=== PATIENT | female | born 1965 | race Caucasian/White ===

== ENCOUNTER 2020-07-16 09:59 | Day surgery (SDC) | payer OTHER, SELFPAY ==
--- NOTE | 2020-07-13 13:34 | HO.ANESPROP2 ---
Documented by User: Maia Gaffney 07/13/20 13:37 HPI - Anesthesia Eval Consult details Narrative: 54yo F for screening colonoscopy [facility] Past Medical History Medical History Anxiety Depression Hx of melanoma of skin Hyperlipemia Hypertension Kidney stones Surgical History Surgical History Hx of colonoscopy Hx of lithotripsy Social History Social History Advance Directives: No Advance Directives Information Provided: No Meds Allergies Allergy/AdvReac Type Severity Reaction Status Date / Time hydrocodone [Vicodin] Allergy Unknown Itchiness Verified 05/04/20 00:00 all over acetaminophen [From PERCOCET] AdvReac Intermediate BAD DREAMS Unverified 07/02/20 16:34 oxycodone [From PERCOCET] AdvReac Intermediate BAD DREAMS Unverified 07/02/20 16:34 Home Medications Medication Instructions Recorded Confirmed Type alprazolam [Xanax] 0.25 mg PO BEDTIME PRN 07/13/20 07/13/20 History cholecalciferol (vitamin D3) 25 mcg PO DAILY 07/13/20 07/13/20 History [Vitamin D3] hydrochlorothiazide 12.5 mg PO DAILY 07/13/20 07/13/20 History lisinopril 10 mg PO DAILY 07/13/20 07/13/20 History loratadine [Claritin] 10 mg PO DAILY 07/13/20 07/13/20 History Exam Exam Date and Time: July 13, 2020 1334 Pertinent Lab Results Pertinent Lab Results: PROFILE and CBC WNL 07/10/20 Assessment and Plan Assessment Anesthesia Assessment: Chart Reviewed (07/13/20 ) Documented by User: Rene Yates 07/16/20 10:34 [facility] Past Medical History Medical History Anxiety Depression Hx of melanoma of skin Hyperlipemia Hypertension Kidney stones Surgical History Surgical History Hx of colonoscopy Hx of lithotripsy Social History Social History Advance Directives: No Advance Directives Information Provided: No Meds Allergies Allergy/AdvReac Type Severity Reaction Status Date / Time hydrocodone [Vicodin] Allergy Unknown Itchiness Verified 05/04/20 00:00 all over acetaminophen [From PERCOCET] AdvReac Intermediate BAD DREAMS Unverified 07/02/20 16:34 oxycodone [From PERCOCET] AdvReac Intermediate BAD DREAMS Unverified 07/02/20 16:34 Home Medications Medication Instructions Recorded Confirmed Type alprazolam [Xanax] 0.25 mg PO BEDTIME PRN 07/13/20 07/13/20 History cholecalciferol (vitamin D3) 25 mcg PO DAILY 07/13/20 07/13/20 History [Vitamin D3] hydrochlorothiazide 12.5 mg PO DAILY 07/13/20 07/13/20 History lisinopril 10 mg PO DAILY 07/13/20 07/13/20 History loratadine [Claritin] 10 mg PO DAILY 07/13/20 07/13/20 History Exam Airway Mallampati Class: III TM Dist: >3cm Neck ROM: Full Heart: RRR Assessment and Plan Final Anesthetic Review NPO: Yes ASA Class: II Final Preanesthetic Review: Meds & Allergies Reviewed and Anes Risks/Benef Reviewed Anesthetic Plan Anesthetic Plan: MAC: Disposition: Standard PACU
[2020-07-16 11:03] VITALS: BMI 32.1
[2020-07-16 11:05] VITALS: BP 136/86; PULSE 83; RESP 16; TEMP 37.1; O2SAT 97
[2020-07-16] MEDS: Lactated Ringers 1,000 ML 100 ML IVCONT (11:38)
--- NOTE | 2020-07-16 12:14 | MHC.SHP ---
Surgical H&P Section A The patient is an INPATIENT: No Changes since office visit: No Cold of Flu in the past 2 weeks, No New Medical Problems, No Changes in Medication and No Patient answered all questions The History & Physical has been completed within 30 days and I have reviewed it.: No Section B Chief Complaint: Family hx of colon cancer Details of Present Illness: Family history of colon cancer; Past hx colo no polyps Hypertension No recent changes Relevant Family History (Specify if Yes): Yes Relevant Social History: None Present Medications: see Short Stay Collaborative assessment Medical History: Significant History (Hypertension) History of Previous Operations: Relevant previous surgery/procedure and date(s) (Last colo: Normal exam-02/17/15-(N)) Allergies: Allergies Allergy/AdvReac Type Severity Reaction Status Date / Time hydrocodone [Vicodin] Allergy Unknown Itchiness Verified 05/04/20 00:00 all over oxycodone [From PERCOCET] AdvReac Intermediate BAD DREAMS Verified 07/16/20 11:34 Review of Systems Sugical H&P ROS: Negative: Constitution, Cardiovascular, Respiratory, Neurological, Psychiatric, Hem-Onc, Allergic/Immunologic, Gastrointestinal, Genitourinary, Musculoskeletal, Integumentary, Endocrine and Eyes/Ears/Nose/Throat Exam Surgical H&P Exam: Normal: Heart, Normal: Lungs, Normal: Extremities, Normal: Abdomen and Normal: Skin and Not Evaluated: HEENT and Not Evaluated: Neurological Plan Diagnosis/Plan: Unchanged Patient has been examined and remains a candidate for the planned procedure
[2020-07-16 12:54] VITALS: BP 105/63; PULSE 71; RESP 18; TEMP 36.8; O2SAT 95
--- NOTE | 2020-07-16 13:08 | PM.OP ---
Brief Operative Note Date of procedure: 07/16/20 Pre-op diagnosis: Colon cancer screening--Positive Family history Post-op diagnosis: other (Normal exam--good prep) Procedure: Colonoscopy, excellent prep--no lesions. Anesthesia: MAC Surgeon: Corine Faust Pathology: none sent Condition: stable Disposition: PACU
[2020-07-16 13:09] VITALS: BP 133/66; PULSE 70; RESP 16; O2SAT 97
[2020-07-16 13:24] VITALS: BP 141/76; PULSE 66; RESP 16; O2SAT 97
== END 2020-07-16 13:56 | disposition home or self-care (01) ==
LOC: HO.SSS 10:00
PROVIDERS: PCP Internal Medicine; Visit Provider Internal Medicine Gastroenterology
PROC: 0DJD8ZZ Inspection of Lower Intestinal Tract, Via Natural or Artificial Opening Endoscopic (ICD-10-PCS; CPT 45378; principal; 2020-07-16 11:00)
DX: Z80.0 Family history of malignant neoplasm of digestive organs (principal); I10 Essential (primary) hypertension; E78.5 Hyperlipidemia, unspecified; Z12.11 Encounter for screening for malignant neoplasm of colon; F32.9 Major depressive disorder, single episode, unspecified; Z85.820 Personal history of malignant melanoma of skin; F17.210 Nicotine dependence, cigarettes, uncomplicated; Z79.899 Other long term (current) drug therapy; Z87.442 Personal history of urinary calculi; Z88.8 Allergy status to other drugs, medicaments and biological substances
CPT/HCPCS: 45378

== ENCOUNTER → 2020-07-24 16:44 | Outpatient (BNVA) | payer OTHER, SELFPAY | PROVIDERS: PCP Internal Medicine; Referring Provider Internal Medicine; Visit Provider Nurse Practitioner Family | DX: Z76.89 Persons encountering health services in other specified circumstances (principal) ==

== ENCOUNTER 2020-10-01 07:57 | Outpatient (REF) | payer OTHER, SELFPAY ==
--- NOTE | 2020-10-01 08:00 | US_ITS ---
EXAMINATION: US ABDOMEN COMPLETE CLINICAL INFORMATION: Other unspecified abnormal findings of blood chemistry. COMPARISON: Renal ultrasound dated 10/22/2013. KUB dated 10/02/2013 [address] 08/27/2013. CT abdomen and pelvis with and without contrast dated 09/16/2013. TECHNIQUE: Real-time imaging of the abdominal viscera. FINDINGS: PANCREAS: Normal. ABDOMINAL AORTA: The proximal, mid, and distal segments are normal in caliber. INFERIOR VENA CAVA: Visualized portions are normal. LIVER: The liver is normal in size. The liver contour is normal. Liver echotexture is slightly increased, probably representing fatty infiltration. No focal hepatic lesion. There is no intrahepatic biliary duct dilatation seen. GALLBLADDER: Normal. The gallbladder is physiologically distended without evidence of stones, sludge, polyps, wall thickening or pericholecystic fluid. COMMON BILE DUCT: Normal in caliber measuring 0.27 cm in diameter. RIGHT KIDNEY: Normal. No hydronephrosis. No renal calculi or focal parenchymal lesions. The kidney measures 12.1 cm in maximum dimension. LEFT KIDNEY: There is a 0.7 x 0.7 x 1 cm stone in the lower pole. No hydronephrosis or focal parenchymal lesions. The kidney measures 11 cm in maximum dimension. SPLEEN: Normal. The spleen measures 10 cm in maximum dimension. FREE FLUID: None. US/US abdomen complete IMPRESSION: Echogenic liver probably representing fatty infiltration. Left renal stone.
== END 2020-10-01 07:58 | disposition home or self-care (01) ==
LOC: HO.US 07:57
PROVIDERS: PCP Internal Medicine; Visit Provider Internal Medicine
DX: R79.89 Other specified abnormal findings of blood chemistry (principal)
CPT/HCPCS: 76700

== ENCOUNTER 2020-10-30 07:13 | Outpatient (REF) | payer OTHER, SELFPAY ==
[2020-10-30 07:44] LABS: MANUAL DIFF FLAG NO
[2020-10-30 07:46] LABS: Basophils Percent Auto 0.4 % (0-2); Eosinophils Absolute Auto 0.1 X10*3/uL (0.0-0.4); Eosinophils Percent Auto 1.2 % (0-4); Hematocrit 39.4 % (37-47); Hemoglobin 13.2 g/dl (12.0-16.0); Imm Gran Abs Auto 0.02 X10*3/uL (0.00-0.03); Imm Gran Pct Auto 0.3 % (0.0-0.4); Lymphocytes Absolute Auto 2.8 X10*3/uL (1.2-4.9); Lymphocytes Percent Auto 38.2 % (20-40); Mean Corpuscular HGB Conc 33.5 g/dl (31.0-35.0); Mean Corpuscular Hemoglobin 30.8 pg (27.0-33.0); Mean Corpuscular Volume 91.8 fL (80-98); Mean Platelet Volume 10.5 fL (9.4-12.3); Monocytes Absolute Auto 0.6 X10*3/uL (0.1-1.2); Monocytes Percent Auto 7.6 % (2-11); Neutrophils Absolute Auto 3.8 X10*3/uL (2.0-8.3); Neutrophils Percent Auto 52.3 % (45-73); Platelet Count 228 X10*3/uL (160-400); Red Blood Count 4.29 X10*6/uL (4.20-5.50); Red Cell Distribution Width 12.4 % (11.0-16.0); White Blood Count 7.3 X10*3/uL (4.8-10.8)
[2020-10-30 07:48] LABS: Glucose Urine UA NEG (NEG); Leukocyte Esterase Urine 1+ (NEG); Nitrite Urine NEG (NEG); Urine Blood TRACE (NEG); Urine Ketones NEG (NEG); Urine Protein NEG (NEG-TRACE)
[2020-10-30 07:49] LABS: Appearance Urine HAZY; Color Urine YELLOW
[2020-10-30 08:07] LABS: Alanine Aminotransferase 22 U/L (0-31); Albumin Level 4.3 g/dL (3.5-5.0); Alkaline Phosphatase 62 U/L (39-117); Anion Gap 17 (12-20); Aspartate Amino Transferase 18 U/L (5-31); Bilirubin Total 0.6 mg/dL (0.0-1.0); Blood Urea Nitrogen 18 mg/dL (9-16); Calcium 8.8 mg/dL (8.4-10.2); Carbon Dioxide 23 mmol/L (22-29); Chloride 105 mmol/L (96-108); Cholesterol 178 mg/dL; Estimated Glomerular Filt Rate > 60; Glucose Random 105 mg/dL (60-115); HDL Cholesterol 39 mg/dL; LDL Cholesterol Calculated 114 mg/dl; Sodium 141 mmol/L (135-145); Total Protein 6.9 g/dL (6.5-8.0); Triglycerides 128 mg/dL
[2020-10-30 08:12] LABS: Bacteria Urine TRACE /LPF; RBC Urine 0-2 /HPF (0); Renal Epithelial Cells Urine TRACE /LPF; Squamous Epithelial Cell Urine 3+ /LPF
[2020-10-30 08:23] LABS: HBsAGNum1 0.23 S/CO (0.00-0.99); Hepatitis B Surface Antigen Negative (Negative); ~Hepatitis B Surface Antibody REACTIVE (Nonreactive)
[2020-10-30 08:27] LABS: Free T4 (Free Thyroxine) 0.91 ng/dL (0.71-1.85); Thyroid Stimulating Hormone 2.84 uIU/mL (0.32-4.0); Vitamin D 25-OH Total 44.5 ng/mL (>30)
[2020-10-30 08:39] LABS: Folate 13.1 ng/mL (> or = 4.0); Vitamin B12 345 pg/mL (200-900)
[2020-10-30 09:00] LABS: HBc Num1 0.07 S/CO (0.00-0.79); Hepatitis B Core Antibody Nonreactive (Nonreactive); ~HepC Num1 0.07 S/CO (0.00-0.79); ~Hepatitis C Antibody Nonreactive (Nonreactive)
== END 2020-10-30 07:14 | disposition home or self-care (01) ==
LOC: HO.LAB 07:13
PROVIDERS: Visit Provider Internal Medicine
DX: F41.8 Other specified anxiety disorders (principal); E78.00 Pure hypercholesterolemia, unspecified; I10 Essential (primary) hypertension; R79.89 Other specified abnormal findings of blood chemistry
CPT/HCPCS: 36415; 80053; 80061; 81001; 82306; 82607; 82746; 84439; 84443; 85025; 86704; 86706; 86803; 87340

== ENCOUNTER → 2020-11-17 15:19 | Outpatient (BNVA) | payer OTHER, SELFPAY | PROVIDERS: Visit Provider Urology ==

== ENCOUNTER 2020-12-02 06:55 | Day surgery (SDC) | payer OTHER, SELFPAY ==
[2020-11-26 10:29] VITALS: BMI 32.1
--- NOTE | 2020-12-01 12:12 | HO.ANESPROP2 ---
Documented by User: Maia Gaffney 12/01/20 12:14 HPI - Anesthesia Eval Consult details Narrative: 55yo F for L ESWL Last ESWL 2012 [facility] Active Problems Active Problems: All Active Problems (Updated 11/02/20 @ 17:45 by Rochelle Bazzi MD) Hypertension (Acute) Hx of melanoma of skin (Acute) High cholesterol (Acute) LFT elevation (Acute) Fatty liver (Acute) Impaired glucose tolerance (Acute) Family history of breast cancer in first degree relative (Acute) History of renal calculi (Acute) Anxiety and depression (Acute) Past Medical History Medical History Anxiety and depression History of renal calculi Skin melanoma Vitreous degeneration of left eye Family History Family History Mother Breast cancer Sister Breast cancer Father No problems noted. Brother Colon cancer Maternal Grandmother Breast cancer Surgical History Surgical History History of shoulder surgery Hx of colonoscopy Hx of lithotripsy Social History Social History Alcohol intake: current Alcohol intake frequency: a few times a week Smoking Status: Former smoker Packs Per Day: 1 Cigarettes Per Day: 20.0 Years Smoked: 20 Smoking Quit Date: unknown Second Hand Smoke Exposure: No Advance Directives Information Provided: No Meds Allergies Allergy/AdvReac Type Severity Reaction Status Date / Time hydrocodone [Vicodin] Allergy Intermediate Itchiness Verified 12/02/20 07:39 all over oxycodone [From PERCOCET] AdvReac Intermediate BAD DREAMS Verified 12/02/20 07:39 Home Medications Medication Instructions Recorded Confirmed Last Taken Type cholecalciferol (vitamin D3) 25 mcg PO DAILY 07/13/20 11/26/20 Unknown History [Vitamin D3] lisinopril 10 mg PO DAILY 07/13/20 11/26/20 Unknown History cetirizine 10 mg PO DAILY 07/16/20 11/26/20 07/16/20 08:00 History 1 alprazolam 1 tab PO DAILY PRN 11/26/20 11/26/20 Unknown History Exam Exam Date and Time: December 01, 2020 1212 Height,Weight and Vital Signs: Height 5 ft 1 in Weight 77.111 kg Pertinent Lab Results Pertinent Lab Results: Laboratory Tests 10/30/20 10/30/20 07:20 07:20 WBC 7.3 Hgb 13.2 Hct 39.4 Plt Count 228 Sodium 141 Potassium 4.0 Chloride 105 Carbon Dioxide 23 BUN 18 H Creatinine 0.78 Assessment and Plan Assessment Anesthesia Assessment: Chart Reviewed Documented by User: Olivia Cortez 12/02/20 08:55 [facility] Past Medical History Medical History Anxiety and depression History of renal calculi Skin melanoma Vitreous degeneration of left eye Family History Family History Mother Breast cancer Sister Breast cancer Father No problems noted. Brother Colon cancer Maternal Grandmother Breast cancer Surgical History Surgical History History of shoulder surgery Hx of colonoscopy Hx of lithotripsy Social History Social History Alcohol intake: current Alcohol intake frequency: a few times a week Smoking Status: Former smoker Packs Per Day: 1 Cigarettes Per Day: 20.0 Years Smoked: 20 Smoking Quit Date: unknown Second Hand Smoke Exposure: No Advance Directives Information Provided: No Meds Allergies Allergy/AdvReac Type Severity Reaction Status Date / Time hydrocodone [Vicodin] Allergy Intermediate Itchiness Verified 12/02/20 07:39 all over oxycodone [From PERCOCET] AdvReac Intermediate BAD DREAMS Verified 12/02/20 07:39 Home Medications Medication Instructions Recorded Confirmed Last Taken Type cholecalciferol (vitamin D3) 25 mcg PO DAILY 07/13/20 11/26/20 Unknown History [Vitamin D3] lisinopril 10 mg PO DAILY 07/13/20 11/26/20 Unknown History cetirizine 10 mg PO DAILY 07/16/20 11/26/20 07/16/20 08:00 History 1 alprazolam 1 tab PO DAILY PRN 11/26/20 11/26/20 Unknown History
[2020-12-02] VITALS (7 sets, daily range): BP systolic 101–119; BP diastolic 53–63; PULSE 54–65; RESP 16–20; TEMP 36.4–37.3; O2SAT 93–99
--- NOTE | ~2020-12-02 | XR_ITS ---
EXAMINATION: XR ABDOMEN KUB CLINICAL INDICATION: Stones. COMPARISON: CT of 09/16/2013. KUB of 08/27/2013. TECHNIQUE: AP view of the abdomen. FINDINGS: The bowel gas pattern is normal with no evidence of ileus or obstruction. The bones are unremarkable. There is an 8 x 5 mm calculus seen overlying the lower pole of the left kidney. No definite calculi are seen overlying the region of the right kidney. No definite calculi along the expected paths of the ureters. Multiple phleboliths are seen about the pelvis. Right psoas margin is intact. Left psoas margin is difficult to see. There is mild scoliosis of the lumbar spine convex right which may be positional in nature. There is partial lumbarization of S1. XR/XR KUB IMPRESSION: Left renal lower pole calculus. This is larger than on prior study of 08/27/2013 where it measured approximately 3 mm in size.
[2020-12-02] MEDS: Lactated Ringers 1,000 ML 100 ML IVCONT (08:07)
--- NOTE | 2020-12-02 09:25 | MHC.SHP ---
Pre-Procedural Eval Section A The patient is an INPATIENT: No Changes since office visit: No Cold of Flu in the past 2 weeks, No New Medical Problems, No Changes in Medication and No Patient answered all questions The History & Physical has been completed within 30 days and I have reviewed it.: Yes Section B Chief Complaint: hx of urinary calculi Allergies: Allergies Allergy/AdvReac Type Severity Reaction Status Date / Time hydrocodone [Vicodin] Allergy Intermediate Itchiness Verified 12/02/20 07:39 all over oxycodone [From PERCOCET] AdvReac Intermediate BAD DREAMS Verified 12/02/20 07:39 Plan Diagnosis/Plan: Unchanged I have reviewed the history and physical and performed a pertinent physical examination on my patient. No changes have occurred unless specified. left ESWL
--- NOTE | 2020-12-02 09:26 | PM.OP ---
Brief Operative Note Date of Service: 12/02/20 Pre-op diagnosis: left 9mm kidney stone Post-op diagnosis: same Procedure: left ESWL Surgeon: Edson Sweeney MD Anesthesia: MAC Estimated blood loss (mL): 0 Pathology: none sent Condition: stable Disposition: same day
--- NOTE | 2020-12-02 09:27 | W.PM.OPN ---
Operative Note Operative Note Date of Service: 12/02/20 Narrative: PreOperative Diagnosis: left Renal stones - 9mm lower pole Post Operative Diagnosis: left Renal stones Procedure: left ESWL Surgeon: Dr Edson Sweeney Anesthesia: mac/sedation Indications for procedure: They understand ESWL may be a staged procedure and subsequent intervention may be required based on imaging after ESWL. They also understand there is a risk of bleeding, infection, damage to adjacent organs. Procedure: After informed consent was verified the patient was brought to the operating room and placed in a supine position. Anesthesia was performed per protocol. Safety pause time-out was performed. Imaging was in the room and laterality confirmed. ESWL was performed. The 1st 500 shocks were performed at 60 hertz. These were performed with increasing power. Once maximum power was reached the rate was increased to 180 hertz. A total of 2500 shocks were given. Fluoroscopy showed stone disintegration. They tolerated procedure well and was transferred to the recovery area upon completion.
[2020-12-02] MEDS: Acetaminophen 325 MG TABLET 650 MG PO (11:34)
== END 2020-12-02 11:55 | disposition home or self-care (01) ==
PROVIDERS: PCP Internal Medicine; Visit Provider Urology
PROC: (CPT 50590; principal; 2020-12-02 09:10)
DX: N20.0 Calculus of kidney (principal); I10 Essential (primary) hypertension; Z79.899 Other long term (current) drug therapy; Z87.442 Personal history of urinary calculi; Z88.5 Allergy status to narcotic agent
CPT/HCPCS: 50590; 74018; J1885; J2405; J3010

== ENCOUNTER 2021-05-17 10:17 | Outpatient (REF) | payer OTHER, SELFPAY ==
--- NOTE | ~2021-05-17 | XR_ITS ---
EXAMINATION: XR CHEST CLINICAL INFORMATION: Previous chest x-ray most recent October 2019 COMPARISON: Previous chest x-ray October 2019 TECHNIQUE: 2 views of the chest were obtained. FINDINGS: No significant abnormality is noted involving the heart, lungs, mediastinum, bony thorax or soft tissues. XR/XR chest 2V IMPRESSION: Unremarkable examination.
== END 2021-05-17 10:18 | disposition home or self-care (01) ==
LOC: HO.HMGCX 10:17
PROVIDERS: PCP Internal Medicine; Visit Provider Nurse Practitioner Family
DX: R05 Cough (principal)
CPT/HCPCS: 71046

== ENCOUNTER 2021-05-17 10:18 | Outpatient (REF) | payer OTHER, SELFPAY | END 2021-05-17 10:19 | disposition home or self-care (01) | LOC: HO.LAB 10:18 | PROVIDERS: Visit Provider Nurse Practitioner Family | DX: Z20.822 Contact with and (suspected) exposure to COVID-19 (principal); R05 Cough | CPT/HCPCS: U0003; U0005 ==

== ENCOUNTER 2022-03-16 07:22 | Outpatient (REF) | payer OTHER, SELFPAY ==
[2022-03-16 08:14] LABS: MANUAL DIFF FLAG NO
[2022-03-16 09:35] LABS: Basophils Percent Auto 0.3 % (0-2); Eosinophils Absolute Auto 0.1 X10*3/uL (0.0-0.4); Eosinophils Percent Auto 1.6 % (0-4); Hematocrit 37.9 % (37.0-47.0); Hemoglobin 12.8 g/dl (12.0-16.0); Imm Gran Abs Auto 0.03 X10*3/uL (0.00-0.03); Imm Gran Pct Auto 0.5 % (0.0-0.4); Lymphocytes Percent Auto 35.2 % (20-40); Mean Corpuscular HGB Conc 33.8 g/dl (31.0-35.0); Mean Corpuscular Hemoglobin 30.7 pg (27.0-33.0); Mean Corpuscular Volume 90.9 fL (80.0-98.0); Mean Platelet Volume 10.4 fL (9.4-12.3); Monocytes Absolute Auto 0.5 X10*3/uL (0.1-1.2); Monocytes Percent Auto 8.1 % (2-11); Neutrophils Absolute Auto 3.1 x10*3/uL (2.0-8.3); Neutrophils Percent Auto 54.3 % (45-73); Platelet Count 217 X10*3/uL (160-400); Red Blood Count 4.17 X10*6/uL (4.20-5.50); Red Cell Distribution Width 12.7 % (11.0-16.0); White Blood Count 5.8 X10*3/uL (4.8-10.8)
[2022-03-16 10:21] LABS: Estimated Average Glucose 111 mg/dL; Hemoglobin A1c % 5.5 %
[2022-03-16 10:29] LABS: Alanine Aminotransferase 28 U/L (0-31); Albumin Level 4.2 g/dL (3.5-5.0); Alkaline Phosphatase 57 U/L (39-117); Anion Gap 13 (12-20); Aspartate Amino Transferase 27 U/L (5-31); Bilirubin Total 0.7 mg/dL (0.0-1.0); Blood Urea Nitrogen 17 mg/dL (9-16); Calcium 9.3 mg/dL (8.4-10.2); Carbon Dioxide 26 mmol/L (22-29); Chloride 105 mmol/L (96-108); Cholesterol 213 mg/dL; Estimated Glomerular Filt Rate > 60; Glucose Random 116 mg/dL (60-115); HDL Cholesterol 40 mg/dL; LDL Cholesterol Calculated 134 mg/dl; Potassium 3.7 mmol/L (3.3-5.1); Sodium 140 mmol/L (135-145); Total Protein 6.9 g/dL (6.5-8.0); Triglycerides 197 mg/dL
[2022-03-16 10:34] LABS: Free T4 (Free Thyroxine) 0.95 ng/dL (0.71-1.85); Vitamin D 25-OH Total 27.7 ng/mL (>30)
[2022-03-16 10:46] LABS: Folate 13.6 ng/mL (> or = 4.0); Vitamin B12 236 pg/mL (200-900)
== END 2022-03-16 07:23 | disposition home or self-care (01) ==
LOC: HO.LAB 07:22
PROVIDERS: PCP Internal Medicine; Visit Provider Internal Medicine
DX: R73.02 Impaired glucose tolerance (oral) (principal); I10 Essential (primary) hypertension; E78.00 Pure hypercholesterolemia, unspecified
CPT/HCPCS: 36415; 80053; 80061; 82306; 82607; 82746; 83036; 84439; 84443; 85025

== ENCOUNTER 2022-03-17 12:42 | Outpatient (REF) | payer OTHER, SELFPAY ==
--- NOTE | ~2022-03-17 | XR_ITS ---
EXAMINATION: XR ANKLE, LEFT CLINICAL INFORMATION: Sprain of the left ankle COMPARISON: None TECHNIQUE: AP, lateral, and mortise views of the left ankle. FINDINGS: There is osseous fragmentation at the tip of the lateral malleolus. There is overlying soft tissue swelling. Ankle mortise is congruent. No significant hernia. XR/XR ankle LT 2V IMPRESSION: Fracture at the tip of the lateral malleolus with overlying soft tissue swelling.
== END 2022-03-17 12:43 | disposition home or self-care (01) ==
LOC: HO.XRAY 12:42
PROVIDERS: PCP Internal Medicine; Visit Provider Internal Medicine
DX: S93.402A Sprain of unspecified ligament of left ankle, initial encounter (principal)
CPT/HCPCS: 73600

== ENCOUNTER 2023-03-16 07:32 | Outpatient (REF) | payer OTHER, SELFPAY ==
[2023-03-16 10:54] LABS: MANUAL DIFF FLAG NO
[2023-03-16 11:07] LABS: Basophils Absolute Auto 0.1 X10*3/uL (0.0-0.2); Basophils Percent Auto 0.8 % (0-2); Eosinophils Absolute Auto 0.1 X10*3/uL (0.0-0.4); Hematocrit 38.2 % (37.0-47.0); Hemoglobin 12.8 g/dl (12.0-16.0); Imm Gran Abs Auto 0.01 X10*3/uL (0.00-0.03); Imm Gran Pct Auto 0.2 % (0.0-0.4); Lymphocytes Absolute Auto 1.8 X10*3/uL (1.2-4.9); Lymphocytes Percent Auto 29.4 % (20-40); Mean Corpuscular HGB Conc 33.5 g/dl (31.0-35.0); Mean Corpuscular Hemoglobin 30.9 pg (27.0-33.0); Mean Corpuscular Volume 92.3 fL (80.0-98.0); Mean Platelet Volume 11.2 fL (9.4-12.3); Monocytes Absolute Auto 0.5 X10*3/uL (0.1-1.2); Monocytes Percent Auto 7.8 % (2-11); Neutrophils Absolute Auto 3.6 x10*3/uL (2.0-8.3); Neutrophils Percent Auto 59.8 % (45-73); Platelet Count 212 X10*3/uL (160-400); Red Blood Count 4.14 X10*6/uL (4.20-5.50); Red Cell Distribution Width 12.4 % (11.0-16.0)
[2023-03-16 11:18] LABS: Alanine Aminotransferase 23 U/L (0-31); Albumin Level 4.2 g/dL (3.5-5.0); Alkaline Phosphatase 65 U/L (39-117); Anion Gap 15 (12-20); Aspartate Amino Transferase 23 U/L (5-31); Bilirubin Total 0.9 mg/dL (0.0-1.0); Blood Urea Nitrogen 17 mg/dL (9-16); Calcium 9.3 mg/dL (8.4-10.2); Carbon Dioxide 25 mmol/L (22-29); Chloride 105 mmol/L (96-108); Cholesterol 192 mg/dL; Estimated Glomerular Filt Rate > 60; Glucose Random 118 mg/dL (60-115); HDL Cholesterol 39 mg/dL; LDL Cholesterol Calculated 121 mg/dl; Sodium 141 mmol/L (135-145); Total Protein 6.8 g/dL (6.5-8.0); Triglycerides 164 mg/dL
[2023-03-16 11:31] LABS: Estimated Average Glucose 111 mg/dL; Hemoglobin A1c % 5.5 %
[2023-03-16 11:46] LABS: Folate 15.4 ng/mL (> or = 4.0); Free T4 (Free Thyroxine) 0.85 ng/dL (0.71-1.85); Thyroid Stimulating Hormone 2.53 uIU/mL (0.32-4.0); Vitamin B12 378 pg/mL (200-900); Vitamin D 25-OH Total 33.5 ng/mL (>30)
== END 2023-03-16 07:33 | disposition home or self-care (01) ==
LOC: HO.10HDL 07:32
PROVIDERS: Visit Provider Internal Medicine
DX: I10 Essential (primary) hypertension (principal); R73.02 Impaired glucose tolerance (oral); E78.00 Pure hypercholesterolemia, unspecified; E55.9 Vitamin D deficiency, unspecified; M81.0 Age-related osteoporosis without current pathological fracture
CPT/HCPCS: 36415; 80053; 80061; 82306; 82607; 82746; 83036; 84439; 84443; 85025

== ENCOUNTER → 2023-05-01 09:01 | Outpatient (REF) | payer OTHER, SELFPAY | LOC: HO.SL 09:01 | PROVIDERS: PCP Internal Medicine; Visit Provider Internal Medicine | DX: G47.10 Hypersomnia, unspecified (principal) | CPT/HCPCS: 95806 ==

== ENCOUNTER → 2023-05-01 09:21 | Outpatient (BNV) | payer OTHER, SELFPAY | PROVIDERS: PCP Internal Medicine; Visit Provider Internal Medicine | DX: G47.10 Hypersomnia, unspecified (principal) | CPT/HCPCS: 95806 ==

== ENCOUNTER 2023-10-20 11:16 | Outpatient (REF) | payer OTHER, SELFPAY | END 2023-10-20 11:17 | disposition home or self-care (01) | LOC: HO.LAB 11:16 | PROVIDERS: PCP Internal Medicine; Visit Provider Internal Medicine | DX: R73.02 Impaired glucose tolerance (oral) (principal) | CPT/HCPCS: 36415; 80053; 83036 ==

== ENCOUNTER 2023-10-23 15:53 | Outpatient (AMB) | payer OTHER, SELFPAY ==
[2023-10-23 15:53] VITALS: BP 132/74; PULSE 67; O2SAT 98; BMI 36.3
--- NOTE | 2023-10-23 15:53 | MHC.PC.OV ---
Vital Signs 10/23/23 15:53 Height 5 ft 1 in Weight 192 lb 0.6 oz BMI 36.3 BP 132/74 Blood Pressure Location Lt brachial Position Sitting Pulse 67 Pulse Source Pulse Oximeter Pulse Oximetry (%) 98 Oxygen Delivery Method Room Air Intake Visit Reasons: irrigation Director Of Vital Statistics Required: No Allergies hydrocodone [Vicodin] Allergy (Intermediate, Verified 10/23/23 15:54) Itchiness all over lisinopril Allergy (Intermediate, Verified 10/23/23 15:54) cough oxycodone [From PERCOCET] Adverse Reaction (Intermediate, Verified 10/23/23 15:54) BAD DREAMS Tobacco use date assessed: 10/23/23 Dental Screening Dental Screen Date: 10/23/23 Did you have a dental visit in the last 12 months?: Yes Did you have a dental problem in the last 6 months where you did not have access to dental care?: No Was dental information given to patient?: Patient has dentist HPI irrigation HPI Details 58-year-old obese female with a history of generalized anxiety disorder hypertension hypercholesterolemia impaired glucose tolerance coming in for follow-up. Last seen in March 2023. Patient's mammogram is done in [facility], up-to-date with colonoscopy July 2020. Pap smear showing ASCUS 2022 and mammogram up-to-date June 2023. April 2023 had a sleep study done revealing no evidence of sleep apnea no nocturnal hypoxemia. cough 2 week , no fevers, covid 08/2023, sore throat, PFSH Medical History (Updated 10/23/23 @ 16:36 by Rochelle Bazzi MD) Hypersomnia Left ankle sprain Annual physical exam Generalized anxiety disorder Family history of breast cancer in first degree relative Vitreous degeneration of left eye Anxiety and depression Skin melanoma Surgical History History of renal calculi History of shoulder surgery Hx of lithotripsy Hx of colonoscopy Family History Mother Breast cancer Sister Breast cancer Father No problems noted. 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 Cognitive needs: No Hearing needs: No Vision needs: Yes Questionnaire Thrive Questionnaire Date Thrive assessed: 04/19/23 I am a: Patient What is your living situation today?: I have a steady place to live Within the past 12 months, did the food you bought not last and you didn't have the money to get more?: Never true Within the past 12 months, did you worry whether your food would run out before you got money to buy more?: Never true Do you have trouble paying for medicines?: No Do you have trouble getting transportation to medical appointments?: No Do you have trouble paying your heating and electricity bill?: No Do you have trouble taking care of your child, family member or friend?: No Do you have trouble with day-to-day activities such as bathing, preparing meals, shopping, managing finances, etc.?: No Are you currently unemployed and looking for a job?: No Are you interested in more education?: No AUDIT C Alcohol Use Questionnaire (AUDIT-C) 1. How often do you have a drink containing alcohol?: 2-3 times a week 2. How many drinks containing alcohol do you have on a typical day when you are drinking?: 3 or 4 3. How often do you have six or more drinks on one occasion?: Less than monthly Total Score: 5 Score Reviewed/Action Taken: Yes JOSE LUIS-7 AMB Questionnaire JOSE LUIS-7 Date JOSE LUIS - 7 assessed: 10/23/23 Feeling nervous, anxious, or on edge: 0 = Not at all Not being able to stop or control worryin = Not at all Worrying too much about different things: 0 = Not at all Trouble relaxin = Not at all Being so restless that it is hard to sit still: 0 = Not at all Becoming easily annoyed or irritable: 0 = Not at all Feeling afraid as if something awful might happen: 0 = Not at all Total JOSE LUIS-7 score (0-4 normal; 5-9 mild; 10-14 moderate; 15-21 severe): 0 Source: Developed by Drs. Butch Walters, Patricia Meyers, Alan Foley and colleagues, with an educational shreyas from [employer]. Physical exam (Primary Care) Vital Signs: Last Vital Signs Pulse 67 10/23/23 15:53 BP 132/74 10/23/23 15:53 Pulse Ox 98 10/23/23 15:53 Oxygen Delivery Method Room Air 10/23/23 15:53 BMI result Body Mass Index 36.3 Tobacco/Smoking Status: Tobacco use Status Tobacco use date assessed 10/23/23 10/23/23 15:54 Patient Tobacco Use Status Former Tobacco user 10/23/23 15:54 e-Cigarette/Vaping Use Never Used 10/23/23 15:54 Thrive Assessment: Date of Thrive Assessment Date Thrive assessed 04/19/23 10/23/23 15:54 Const General: alert; No acute distress HENMT Other: impacted cerumen Eyes Conjunctivae: conjunctivae normal Resp Auscultation: clear to auscultation bilaterally Cardio Rate: regular rate Rhythm: regular rhythm GI Inspection: Yes normal to inspection Extrem General: Yes normal to inspection and No edema Office Procedures Cerumen Removal From which ear canal was the cerumen removed: bilateral Removal: irrigation, otoscope w/curette, cerumen loop/spoon and other Notes: patient tolerated procedure well, no complications and ear canal clear [id number] Irrigation/Lavage Flu Questionnaire Does the patient have a severe egg allergy?: No Does the patient have severe life threatening allergies?: No Does the patient have a fever or illness today?: No Has the patient ever had Guillain-Red Level Syndrome?: No Has the patient ever had any past reaction to a flu shot?: No Immunizations flu vacc [id number] 6mos up(PF) 60 mcg(15 mcgx4)/0.5 mL IM syringe Performing Provider: Rochelle Bazzi MD [facility] Administered by: Cielo Sotelo on 10/23/23 16:45 Dose Route Admin Location Dispensed Lot Number Expiration Date [employer] Strategic [employer] Manager 0.5 mL IM Left Deltoid 0.5 mL [id number] 04/14/24 35267-499-73 [employer] VIS Given Date VIS Provided VIS Publication Date 10/23/23 Single Vaccine 21 Eligibility Eligibility Date Funding Source Not [facility] Eligible 10/23/23 Private Assessment and Plan Assessment & Plan (1) Vaginal Pap smear with ASC-US: Comment: November 2022 Code(s): R87.620 - Atypical squamous cells of undetermined significance on cytologic smear of vagina (ASC-US) Plan: Patient follows up with [facility] gynecology (2) Generalized anxiety disorder: Comment: [facility] activities counselor Code(s): F41.1 - Generalized anxiety disorder Plan: Continue with counseling (3) Hypertension: Code(s): I10 - Essential (primary) hypertension Qualifiers: Hypertension type: essential hypertension Qualified Code(s): I10 - Essential (primary) hypertension Plan: Continue with blood pressure medication. Decrease salt intake and exercise patient on losartan hydrochlorothiazide (4) Impaired glucose tolerance: Code(s): R73.02 - Impaired glucose tolerance (oral) Plan: Decrease the amount of carbohydrate intake, pasta, bread, rice and potatoes are all sugar and that is aside from all the sweet stuff, remember that fruits are good but they are Sweet also. (5) Impacted cerumen of both ears: Code(s): H61.23 - Impacted cerumen, bilateral Plan: scoop and irrigation done TM intact bilateral (6) Allergic rhinitis: Code(s): J30.9 - Allergic rhinitis, unspecified Plan: trial of allergy med Orders: Orders Influenza [id number] Immunization Today Z23 - Encounter for immunization Medications: New flu vacc [id number] 6mos up(PF) 0.5 mL IM ONCE 0.5 mL 0RF Z23 - Encounter for immunization Coding Level of Care Code Est Pt Level 4 (71793) Diagnoses Vaginal Pap smear with ASC-US R87.620 Generalized anxiety disorder F41.1 Essential hypertension I10 Hypertension type: essential hypertension Impaired glucose tolerance R73.02 Impacted cerumen of both ears H61.23 Allergic rhinitis J30.9 CPT Codes Office Procedure - CPT: 76376-Dan Irrigation/Lavage ([id number])
== END 2023-10-23 16:46 | disposition home or self-care (01) ==
PROVIDERS: PCP Internal Medicine; Visit Provider Internal Medicine
DX: R87.620 Atypical squamous cells of undetermined significance on cytologic smear of vagina (ASC-US) (principal); F41.1 Generalized anxiety disorder; I10 Essential (primary) hypertension; Z23 Encounter for immunization; R73.02 Impaired glucose tolerance (oral); H61.23 Impacted cerumen, bilateral; J30.9 Allergic rhinitis, unspecified
CPT/HCPCS: 69210; 90471; 90686; 99214

== ENCOUNTER 2023-12-13 15:55 | Outpatient (REF) | payer OTHER, SELFPAY | END 2023-12-13 15:56 | disposition home or self-care (01) | LOC: HO.SH 15:55 | PROVIDERS: Visit Provider Internal Medicine | DX: Z01.118 Encounter for examination of ears and hearing with other abnormal findings (principal); H90.3 Sensorineural hearing loss, bilateral | CPT/HCPCS: 92557 ==

== ENCOUNTER 2024-08-21 16:04 | Outpatient (AMB) | payer BC, SELFPAY ==
[2024-08-21 16:06] VITALS: BP 124/76; PULSE 76; O2SAT 97; BMI 36.5
--- NOTE | 2024-08-21 16:06 | MHC.PC.OV ---
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: No Allergies hydrocodone [Vicodin] Allergy (Intermediate, Verified 08/21/24 16:27) Itchiness all over lisinopril Allergy (Intermediate, Verified 08/21/24 16:27) cough oxycodone [From PERCOCET] Adverse Reaction (Intermediate, Verified 08/21/24 16:27) BAD DREAMS Medication List - Last Reconciled 08/21/24 by Maricel Chawla PA-C cholecalciferol (vitamin D3) (Vitamin D3) 25 mcg PO DAILY escitalopram oxalate 20 mg PO DAILY 90 days hydrochlorothiazide 12.5 mg PO DAILY losartan 50 mg PO DAILY trazodone 50 mg PO BEDTIME PRN 90 days Tobacco use date assessed: 08/21/24 Dental Screening Dental Screen Date: 08/21/24 Did you have a dental visit in the last 12 months?: Yes Did you have a dental problem in the last 6 months where you did not have access to dental care?: No Was dental information given to patient?: Patient has dentist HPI annual exam HPI Details 58-year-old obese female with a history of generalized anxiety disorder hypertension hypercholesterolemia impaired glucose tolerance coming in for annual exam. Patient was last seen by 10/2023.?Patient was recently seen by [facility] 07/10/2024 for high-risk of breast cancer due to family history.?Mammogram and MRI negative for evidence of malignancy.? Advised to continue with annual screening mammograms. Colonoscopy completed 2019 follow up in 5 years. Patient states she is feeling generally well. She is frustrated with weight loss she has been trying dieting and exercising but feels she has not lost as much weight as she would. She is interested in trying injections for weight loss. She also mentioned she is on trazodone and escitalopram for anxiety/depression feels is not well managed at this time. [facility] Medical History Hypersomnia Left ankle sprain Annual physical exam Generalized anxiety disorder Family history of breast cancer in first degree relative Vitreous degeneration of left eye Anxiety and depression Skin melanoma Surgical History History of renal calculi History of shoulder surgery Hx of lithotripsy Hx of colonoscopy Family History Mother Breast cancer Sister Breast cancer Father No problems noted. 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 1. Little interest or pleasure in doing things: not at all 2. Feeling down, depressed, or hopeless: several days 3. Trouble falling or staying asleep, or sleeping too much: several days 4. Feeling tired or having little energy: several days 5. Poor appetite or overeating: not at all 6. Feeling bad about yourself - or that you are a failure or have let yourself or your family down: several days 7. Trouble concentrating on things, such as reading the newspaper or watching television: not at all 8. Moving or speaking so slowly that other people could have noticed. Or the opposite - being so fidgety or restless that you have been moving around a lot more than usual: not at all 9. Thoughts that you would be better off or of hurting yourself in some way: not at all Total score: 4 Depression Screening Interpretation: Negative Depression Screening Done: Yes 61773 - PHQ-9 Billing: Yes Source: Developed by Drs. Butch Walters, Patricia Meyers, Alan Foley and colleagues, with an educational shreyas from [employer]. Thrive Questionnaire Date Thrive assessed: 04/19/23 I am a: Patient What is your living situation today?: I have a steady place to live Within the past 12 months, did the food you bought not last and you didn't have the money to get more?: Never true Within the past 12 months, did you worry whether your food would run out before you got money to buy more?: Never true Do you have trouble paying for medicines?: No Do you have trouble getting transportation to medical appointments?: No Do you have trouble paying your heating and electricity bill?: No Do you have trouble taking care of your child, family member or friend?: No Do you have trouble with day-to-day activities such as bathing, preparing meals, shopping, managing finances, etc.?: No Are you currently unemployed and looking for a job?: No Are you interested in more education?: No Please select the resources that you would like help with: None Currently or been in a relationship where the following occur: No concerns reported THRIVE Score: 0 AUDIT C Alcohol Use Questionnaire (AUDIT-C) 1. How often do you have a drink containing alcohol?: 2-4 times a month 2. How many drinks containing alcohol do you have on a typical day when you are drinking?: 3 or 4 3. How often do you have six or more drinks on one occasion?: Monthly Total Score: 5 JOSE LUIS-7 AMB Questionnaire JOSE LUIS-7 Date JOSE LUIS - 7 assessed: 10/23/23 Feeling nervous, anxious, or on edge: 1 = Several days Not being able to stop or control worryin = More than half the days Worrying too much about different things: 2 = More than half the days Trouble relaxin = Several days Being so restless that it is hard to sit still: 0 = Not at all Becoming easily annoyed or irritable: 0 = Not at all Feeling afraid as if something awful might happen: 0 = Not at all Total JOSE LUIS-7 score (0-4 normal; 5-9 mild; 10-14 moderate; 15-21 severe): 6 Source: Developed by Drs. Butch Walters, Patricia Meyers, Alan Foley and colleagues, with an educational shreyas from [employer]. JOSE LUIS-7 Assessment Billing JOSE LUIS-7 Assessment Tool: JOSE LUIS-7 Assessment 66803 Review of Systems Const Denies body aches, Denies fatigue, Denies fever(s), Denies frequent falls, Denies headache(s), Denies weakness and Reports weight gain Eyes Reports no additional complaints and Denies change in vision ENT Denies dysphagia, Denies dizziness, Denies facial pain, Denies headache(s), Denies nasal congestion and Denies odynophagia Card Denies chest pain, Denies syncope, Denies irregular heart rhythm, Denies leg edema, Denies lightheadedness and Denies dyspnea Resp Denies cough and Denies dyspnea GI Denies constipation, Denies dysphagia, Denies dyspepsia, Denies diarrhea, Denies nausea, Denies odynophagia and Denies vomiting Denies urinary frequency, Denies dysuria, Denies urinary hesitancy and Denies urinary urgency Musc Denies back pain and Denies myalgias Skin/Breast Reports system reviewed and no additional complaints, except as documented Neuro Denies dizziness, Denies syncope, Denies frequent falls, Denies headache(s) and Denies weakness Psych Reports no additional complaints Endo Denies fatigue Physical exam (Primary Care) Vital Signs: Last Vital Signs Pulse 76 08/21/24 16:06 BP 124/76 08/21/24 16:06 Pulse Ox 97 08/21/24 16:06 Oxygen Delivery Method Room Air 08/21/24 16:06 BMI result Body Mass Index 36.5 Tobacco/Smoking Status: Tobacco use Status Tobacco use date assessed 08/21/24 08/21/24 16:13 Patient Tobacco Use Status Former Tobacco user 08/21/24 16:07 e-Cigarette/Vaping Use Never Used 08/21/24 16:07 PHQ-9: PHQ-9 Score PHQ-9: Total score 4 08/21/24 16:19 Depression Screening Interpretation: Negative Thrive Assessment: Date of Thrive Assessment Date Thrive assessed 04/19/23 08/21/24 16:07 Currently or been in a relationship where the following occur: No concerns reported Const General: cooperative, healthy appearing, comfortable and no acute distress Orientation/consciousness: patient oriented x3 HENMT Head: Yes normocephalic Ears: hearing grossly normal bilaterally, external ears normal, TM's normal bilaterally and EAC's normal General nose exam: Normal external nose present Face and sinus: Yes normal facial exam and Yes sinuses nontender Mouth: Normal oral and palatal mucosa present and tongue normal Throat: Yes posterior oropharynx normal Eyes General: appearance normal, both eyes and all related structures Conjunctivae: conjunctivae normal Pupils: Equal, round and reactive pupils present EOM: EOMs intact bilaterally and No Nystagmus present Neck Neck: Yes normal visual inspection, Yes full ROM and Yes no lymphadenopathy Chest Chest palpation & inspection: normal inspection of the chest Resp Effort & Inspection: normal respiratory effort Auscultation: clear to auscultation bilaterally, no crackles, no rales, no rhonchi, no wheezes and breath sounds present Cardio Rate: regular rate Rhythm: regular rhythm Peripheral pulses: radial pulses present and dorsalis pedis present GI Inspection: Yes normal to inspection and No Abdominal wall edema Palpation (GI): Soft to palpation, not firm and nontender Auscultation: normal bowel sounds Rectal Exam - Female: deferred General: Yes no CVA tenderness Back/Spine/Pelvis Back: no CVA tenderness Skin General skin exam: no rashes or lesions noted Neuro General: patient oriented x3 Cranial nerves: Yes Equal, round and reactive pupils present, Yes Midline tongue present, Yes Ability to bilaterally elevate shoulders present and No Nystagmus present Gait exam (Neuro): Normal gait present Extrem General: Yes normal to inspection, Yes full ROM, No no pedal edema and No edema Psych Speech and movement: Normal speech and movement present Affect: normal affect Insight: Good insight present (Psych) Judgement: Good judgement present (Psych) Office Procedures Flu Questionnaire Does the patient have a severe egg allergy?: No Does the patient have severe life threatening allergies?: No Does the patient have a fever or illness today?: No Has the patient ever had Guillain-[place] Syndrome?: No Has the patient ever had any past reaction to a flu shot?: No Immunizations Fluarix Triv [id number] (PF) 45 mcg (15 mcg x 3)/0.5 mL IM syringe Performing Provider: Maricel Chawla PA-C [facility] Administered by: SANTI Kaminski on 08/21/24 16:18 Dose Route Admin Location Dispensed Lot Number Expiration Date [facility] [place]NOTE 2] 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 0.5 mL IM Left Deltoid 0.5 mL [id number] 04/14/25 [id number] [employer] English VIS Given Date VIS Provided VIS Publication Date 08/21/24 Single Vaccine 21 Eligibility Eligibility Date Funding Source Not [facility] Eligible 08/21/24 Private Coding Level of Care Code Est Pt Level 3 (53568) Est Pt Prev Care 40-64y(34931) Diagnoses Generalized anxiety disorder F41.1 Essential hypertension I10 Hypertension type: essential hypertension High cholesterol E78.00 Fatty liver K76.0 Impaired glucose tolerance R73.02 Annual physical exam Z00.00 Obesity (BMI 30.0-34.9) E66.811 Depression F32.9 Additional Codes JOSE LUIS-7 Assessment Billing - JOSE LUIS-7 Assessment Tool: JOSE LUIS-7 Assessment 01588 ([id number]) PHQ-9 - 18806 - PHQ-9 Billing: Yes ([id number]) Assessment & Plan Assessment & Plan (1) Generalized anxiety disorder: Code(s): F41.1 - Generalized anxiety disorder Category: Medical Plan: No longer follows with [facility] and referral was placed for a new counselor. She feels the trazodone works well for her insomnia and mildly well for her anxiety however she feels the escitalopram is not as effective and is looking to possibly switch medications. Referral placed for outpatient psych clinic. (2) Hypertension: Code(s): I10 - Essential (primary) hypertension Category: Medical Qualifiers: Hypertension type: essential hypertension Qualified Code(s): I10 - Essential (primary) hypertension Plan: Continue on current blood pressure medication. Avoid salt intake and encourage healthy diet and regular exercise. (3) High cholesterol: Code(s): E78.00 - Pure hypercholesterolemia, unspecified Category: Medical Plan: Avoid foods that are high in cholesterol such as red meat, fried foods, eggs and baked goods. Triglyceride goal of less than 150 and LDL goal of less than 130. Ordered for updated blood work (4) Fatty liver: Code(s): K76.0 - Fatty (change of) liver, not elsewhere classified Category: Medical Plan: Healthy diet and regular exercise is encouraged. (5) Impaired glucose tolerance: Code(s): R73.02 - Impaired glucose tolerance (oral) Category: Medical Plan: Decrease the amount of carbohydrates such as pasta, bread, rice, and potatoes and limit the amount of sweets. Although fruits are generally healthy they should be eaten in moderation as they are still high in sugar. (6) Annual physical exam: Code(s): Z00.00 - Encounter for general adult medical examination without abnormal findings Category: Medical Plan: Patient is up-to-date on all recommended routine screenings and vaccinations for her age. Ordered for updated blood work and we will follow up in 3 months. (7) Obesity (BMI 30.0-34.9): Code(s): E66.811 - Obesity, class 1 Category: Medical Plan: Healthy diet and regular exercise is encouraged. Patient would like to try Zepbound injections discussed side effects of this medication and reviewed medication administration. Advised patient to have blood work done 2 weeks into therapy and we will follow up in 3 months. (8) Depression: Code(s): F32.9 - Major depressive disorder, single episode, unspecified Category: Medical Plan: Patient feels depression is not well managed with the escitalopram and is looking for a counselor and possible medical management. Referral placed for counseling services as well as outpatient psych clinic for further medical management. Plan This note was constructed using voice recognition software. While every effort has been made to ensure accuracy and machine edge bander, still areas may have been included sometimes these areas may affect the content or meeting of the given symptoms. Total time spent caring for the patient today was 30 minutes. This includes time spent before the visit reviewing the chart, time spent during the visit, and time spent after the visit and documentation. Orders: Orders Influenza [id number] Immunization 08/21/24 Z23 - Encounter for immunization Comprehensive Met. Panel 08/21/24 Z00.00 - Encounter for general adult medical examination without abnormal findings Lipid Panel 08/21/24 Z00.00 - Encounter for general adult medical examination without abnormal findings Referrals Counseling Referral F41.1 - Generalized anxiety disorder Psychiatry Outpatient Consultation Service F32.9 - Major depressive disorder, single episode, unspecified, F41.1 - Generalized anxiety disorder Medications: New tirzepatide (weight loss) (Zepbound) for 4 weeks 2.5 mg (0.5 mL) subcut QWEEK 2 mL 0RF
== END 2024-08-21 16:46 | disposition home or self-care (01) ==
LOC: HO.HMCH 16:05
PROVIDERS: PCP Internal Medicine
DX: Z00.00 Encounter for general adult medical examination without abnormal findings (principal); F41.1 Generalized anxiety disorder; Z68.36 Body mass index [BMI] 36.0-36.9, adult; E66.811 Obesity, class 1; I10 Essential (primary) hypertension; E78.00 Pure hypercholesterolemia, unspecified; K76.0 Fatty (change of) liver, not elsewhere classified; R73.02 Impaired glucose tolerance (oral); F32.9 Major depressive disorder, single episode, unspecified

== ENCOUNTER → 2024-08-21 16:04 | Outpatient (BNVA) | payer BC, SELFPAY | PROVIDERS: PCP Internal Medicine | DX: Z00.00 Encounter for general adult medical examination without abnormal findings (principal); Z23 Encounter for immunization; F41.1 Generalized anxiety disorder; I10 Essential (primary) hypertension; E78.00 Pure hypercholesterolemia, unspecified; K76.0 Fatty (change of) liver, not elsewhere classified; R73.02 Impaired glucose tolerance (oral); F32.9 Major depressive disorder, single episode, unspecified; E66.811 Obesity, class 1; Z68.36 Body mass index [BMI] 36.0-36.9, adult | CPT/HCPCS: 90471; 90656; 96127 ==

== ENCOUNTER 2024-10-07 12:32 | Outpatient (AMB) | payer BC, SELFPAY ==
--- NOTE | 2024-10-07 12:33 | MHC.PC.OV ---
Intake Visit Reasons: COVID POS. Allergies hydrocodone [Vicodin] Allergy (Intermediate, Verified 10/07/24 12:34) Itchiness all over lisinopril Allergy (Intermediate, Verified 10/07/24 12:34) cough oxycodone [From PERCOCET] Adverse Reaction (Intermediate, Verified 10/07/24 12:34) BAD DREAMS Medication List - Last Reconciled 10/07/24 by Rochelle Bazzi MD cholecalciferol (vitamin D3) (Vitamin D3) 25 mcg PO DAILY escitalopram oxalate 20 mg PO DAILY hydrochlorothiazide 12.5 mg PO DAILY losartan 50 mg PO DAILY tirzepatide (weight loss) (Zepbound) 2.5 mg (0.5 mL) subcut QWEEK trazodone 50 mg PO BEDTIME PRN 90 days Tobacco use date assessed: 08/21/24 Dental Screening Dental Screen Date: 08/21/24 HPI COVID POS. HPI Details The patient is a 59-year-old female presenting with symptoms consistent with COVID-19. She was tested and confirmed positive for COVID-19 yesterday. The patient's symptoms began to intensify on the Monday night before the test, leading to the inability to sleep due to significant discomfort. Her symptomatology includes chills and a sore throat. The patient reports having been unwell for approximately one month prior to testing, with a persistent mild cough that recently worsened. She denies fever, although she experienced chills. She has not taken her temperature. The patient notes difficulty sleeping and persistent congestion. She denies any ear pain. The patient has been taking trazodone to aid with sleep. - General: Reports chills, denies fever. - Respiratory: Reports chronic cough, denies chest shortness of breath. - ENT: Reports sore throat, congestion; denies ear pain. [facility] Medical History Hypersomnia Left ankle sprain Annual physical exam Generalized anxiety disorder Family history of breast cancer in first degree relative Vitreous degeneration of left eye Anxiety and depression Skin melanoma Surgical History History of renal calculi History of shoulder surgery Hx of lithotripsy Hx of colonoscopy Family History Mother Breast cancer Sister Breast cancer Father No problems noted. 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 Butch Walters, Patricia Meyers, Alan Foley and colleagues, with an educational shreyas from [employer]. Physical exam (Primary Care) Tobacco/Smoking Status: Tobacco use Status Tobacco use date assessed 08/21/24 10/07/24 12:33 Patient Tobacco Use Status Former Tobacco user 10/07/24 12:33 Tobacco use type Cigarette 10/07/24 12:35 e-Cigarette/Vaping Use Never Used 10/07/24 12:33 Thrive Assessment: Date of Thrive Assessment Date Thrive assessed 04/19/23 10/07/24 12:33 Telehealth Telehealth Location of provider rendering services: practice address Location of patient: address on file Patient Identification confirmed using: Name, : Yes Telehealth method: video (Iphone) Patient verbally consented to treatment: Yes Patient verbally consented to billing insurance company: Yes Patient informed of any privacy concerns related to visit: Yes Minutes spent on Phone/Video with Pt.: 15 Coding Level of Care Code Tele Est Pt Level 3 (24501) Diagnoses COVID-19 virus infection U07.1 Assessment & Plan Assessment & Plan (1) COVID-19 virus infection: Comment: 04/03/2022, 10/06/2024 Code(s): U07.1 - COVID-19 Category: Medical Plan: - Continue medication for COVID-19 with a prescribed antiviral regimen. - Temporarily discontinue trazodone for five days due to potential interaction with the antiviral medication. - Prescribe Tessalon perles to alleviate chronic cough and potential sleep disturbances due to coughing. - Encourage increased fluid intake to assist with hydration and symptom management. - Recommend use of throat lozenges to alleviate sore throat. - During the consultation, I confirmed the positive COVID-19 diagnosis and discussed the treatment regimen. I highlighted the importance of the antiviral medication despite its unfavorable taste profile, specifically mentioning its metallic flavor. I informed the patient about the temporary discontinuation of trazodone due to potential drug interactions. We discussed the use of Tessalon perles to mitigate cough, especially to improve sleep quality at night. I emphasized the necessity of adequate hydration and recommended throat lozenges for sore throat management. Arrangements were made for medication pickup at the patient's preferred pharmacy location. Medications: New nirmatrelvir-ritonavir 300 mg (150 mg x 2)-100 mg (Paxlovid) take TWO 150 mg tablets of nirmatrelvir with ONE 100 mg tablet of ritonavir twice daily for 5 days PO 30 ea 0RF U07.1 - COVID-19 benzonatate 200 mg PO BID-TID PRN 14 caps 0RF cough U07.1 - COVID-19
== END 2024-10-07 13:48 | disposition home or self-care (01) ==
LOC: HO.HMCH 12:32
PROVIDERS: PCP Internal Medicine; Visit Provider Internal Medicine
DX: U07.1 COVID-19 (principal)

== ENCOUNTER → 2024-10-07 12:32 | Outpatient (BNVA) | payer BC, SELFPAY | PROVIDERS: PCP Internal Medicine; Visit Provider Internal Medicine ==

== ENCOUNTER 2024-10-21 10:23 | Outpatient (REF) | payer BC, SELFPAY ==
--- NOTE | ~2024-10-21 | XR_ITS ---
EXAMINATION: XR CHEST CLINICAL INFORMATION: R05 - Cough COMPARISON: X-ray dated May 17, 2021 TECHNIQUE: 2 views of the chest were obtained. FINDINGS: No consolidation, pleural effusion or pneumothorax. Cardiomediastinal silhouette is normal in size. Mild multilevel thoracolumbar spondylosis. Focal calcification right lower soft tissue neck, nonspecific. Patient's large body habitus. Degenerative changes in the acromioclavicular joints. XR/XR chest 2V IMPRESSION: No acute airspace disease. Multilevel spondylosis, axial skeleton. Electronically signed by: Carlos Enrique Wells MD 10/21/2024 11:40 AM [facility] [place]
== END 2024-10-21 10:24 | disposition home or self-care (01) ==
LOC: HO.XRAY 10:23
PROVIDERS: PCP Internal Medicine; Visit Provider Internal Medicine
DX: R05.9 Cough, unspecified (principal)
CPT/HCPCS: 71046

== ENCOUNTER → 2024-10-21 10:23 | Outpatient (AMB) | payer BC, SELFPAY ==
--- NOTE | 2024-10-21 10:27 | A.OFFPC_ITS ---
Vital Signs 10/21/24 10:29 Height 5 ft 1 in Weight 195 lb BMI 36.8 BP 128/68 Blood Pressure Location Lt brachial Position Sitting Pulse 75 Pulse Source Pulse Oximeter Pulse Oximetry (%) 95 Oxygen Delivery Method Room Air Intake Visit Reasons: pain L side Intake Note: Patient is here to follow up on Pain in left side. Business Operations Specialist Required: No Automation Software Engineer: Not Required per policy Accompanied by: Self / Same As Patient Allergies hydrocodone [Vicodin] Allergy (Intermediate, Verified 10/21/24 10:29) Itchiness all over lisinopril Allergy (Intermediate, Verified 10/21/24 10:29) cough oxycodone [From PERCOCET] Adverse Reaction (Intermediate, Verified 10/21/24 10:29) BAD DREAMS Medication List - Last Reconciled 10/21/24 by Maricel Chawla PA-C cholecalciferol (vitamin D3) (Vitamin D3) 25 mcg PO DAILY escitalopram oxalate 20 mg PO DAILY hydrochlorothiazide 12.5 mg PO DAILY losartan 50 mg PO DAILY tirzepatide (weight loss) (Zepbound) 2.5 mg (0.5 mL) subcut QWEEK trazodone 50 mg PO BEDTIME PRN 90 days Tobacco use date assessed: 10/21/24 Dental Screening Dental Screen Date: 10/21/24 Did you have a dental visit in the last 12 months?: Yes Did you have a dental problem in the last 6 months where you did not have access to dental care?: No Was dental information given to patient?: Patient has dentist HPI pain L side HPI Details 58-year-old female with past medical his tory of generalized anxiety disorder, hypertension, hypercholesterolemia, impaired glucose tolerance last seen September 2024 coming in for acute problem. Patient tells us today tested positive for COVID 2 weeks ago still has a cough but has noticed an improvement. The cough is productive with yellow phlegm and typically worse at nighttime. Denies any fevers or chest pains. She does mentioned she is having right-sided rib pain that began on Monday and has been persistent. Feels like an deep aching pain and has pain while taking a deep breath and with palpation. [facility] Medical History Hypersomnia Left ankle sprain Annual physical exam Generalized anxiety disorder Family history of breast cancer in first degree relative Vitreous degeneration of left eye Anxiety and depression Skin melanoma Surgical History History of renal calculi History of shoulder surgery Hx of lithotripsy Hx of colonoscopy Family History Mother Breast cancer Sister Breast cancer Father No problems noted. 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 1. Little interest or pleasure in doing things: not at all 2. Feeling down, depressed, or hopeless: not at all 3. Trouble falling or staying asleep, or sleeping too much: not at all 4. Feeling tired or having little energy: not at all 5. Poor appetite or overeating: not at all 6. Feeling bad about yourself - or that you are a failure or have let yourself or your family down: not at all 7. Trouble concentrating on things, such as reading the newspaper or watching television: not at all 8. Moving or speaking so slowly that other people could have noticed. Or the opposite - being so fidgety or restless that you have been moving around a lot more than usual: not at all 9. Thoughts that you would be better off or of hurting yourself in some way: not at all Total score: 0 Depression Screening Interpretation: Negative Depression Screening Done: Yes Source: Developed by Drs. Butch Walters, Patricia Meyers, Alan Foley and colleagues, with an educational shreyas from [employer]. Thrive Questionnaire Date Thrive assessed: 10/21/24 AUDIT C Alcohol Use Questionnaire (AUDIT-C) 1. How often do you have a drink containing alcohol?: 2-4 times a month 2. How many drinks containing alcohol do you have on a typical day when you are drinking?: 3 or 4 3. How often do you have six or more drinks on one occasion?: Monthly Total Score: 5 JOSE LUIS-7 AMB Questionnaire JOSE LUIS-7 Date JOSE LUIS - 7 assessed: 10/21/24 Feeling nervous, anxious, or on edge: 0 = Not at all Not being able to stop or control worryin = Not at all Worrying too much about different things: 0 = Not at all Trouble relaxin = Not at all Being so restless that it is hard to sit still: 0 = Not at all Becoming easily annoyed or irritable: 0 = Not at all Feeling afraid as if something awful might happen: 0 = Not at all Total JOSE LUIS-7 score (0-4 normal; 5-9 mild; 10-14 moderate; 15-21 severe): 0 Source: Developed by Drs. Butch Walters, Patricia Meyers, Alan Foley and colleagues, with an educational shreyas from [employer]. Review of Systems Const Denies body aches, Denies chills, Denies fever(s), Denies headache(s) and Denies poor appetite Eyes Reports no additional complaints ENT Denies dizziness and Denies headache(s) Card Denies chest pain, Denies edema, Denies irregular heart rhythm, Denies lightheadedness and Reports dyspnea Resp Reports cough, Denies hemoptysis, Reports excessive phlegm production and Reports dyspnea GI Reports no additional complaints Reports no additional complaints Musc Denies abnormal gait Skin/Breast Reports system reviewed and no additional complaints, except as documented Neuro Denies abnormal gait, Denies dizziness and Denies headache(s) Psych Reports no additional complaints Physical exam (Primary Care) Vital Signs: Last Vital Signs Pulse 75 10/21/24 10:29 BP 128/68 10/21/24 10:29 Pulse Ox 95 10/21/24 10:29 Oxygen Delivery Method Room Air 10/21/24 10:29 BMI result Body Mass Index 36.8 Tobacco/Smoking Status: Tobacco use Status Tobacco use date assessed 10/21/24 10/21/24 10:38 Patient Tobacco Use Status Former Tobacco user 10/21/24 10:38 Tobacco use type Cigarette 10/21/24 10:38 e-Cigarette/Vaping Use Never Used 10/21/24 10:38 PHQ-9: PHQ-9 Score PHQ-9: Total score 0 10/21/24 10:38 Depression Screening Interpretation: Negative Thrive Assessment: Date of Thrive Assessment Date Thrive assessed 10/21/24 10/21/24 10:38 Const General: cooperative, healthy appearing, comfortable and no acute distress Orientation/consciousness: patient oriented x3 HENMT Head: Yes normocephalic Ears: hearing grossly normal bilaterally General nose exam: Normal external nose present Eyes General: appearance normal, both eyes and all related structures Conjunctivae: conjunctivae normal Neck Neck: Yes full ROM and Yes no lymphadenopathy Chest Other: Pain to palpation over left ribcage no rashes or lesions in this area Resp Effort & Inspection: normal respiratory effort Auscultation: clear to auscultation bilaterally, no crackles, no rales, no rhonchi and no wheezes Cardio Rate: regular rate Rhythm: regular rhythm Skin General skin exam: no rashes or lesions noted Neuro General: patient oriented x3 Gait exam (Neuro): Normal gait present Extrem General: Yes normal to inspection, Yes full ROM and No edema Psych Affect: normal affect Attitude: cooperative Insight: Good insight present (Psych) Judgement: Good judgement present (Psych) Coding Level of Care Code Est Pt Level 4 (42401) Diagnoses Cough R05 Rib pain on left side R07.81 Assessment & Plan Assessment & Plan (1) Cough: Code(s): R05 - Cough Category: Medical Plan: Patient continues to have cough ordered for chest x-ray to rule out pneumonia. Advised patient to use Mucinex. Lungs are clear to auscultation bilaterally. (2) Rib pain on left side: Code(s): R07.81 - Pleurodynia Category: Medical Plan: Pain to palpation over left ribs. Unlikely cardiac as it is reproducible and no complaints of chest pain. Patient has pain with deep breath and while coughing. Likely muscle strain versus costochondritis based on recent history of cough. however given dermatomal distribution of pain can not rule out shingles. No visible lesions at this time advised patient to continue to monitor for rash development. We will treat as muscle strain at this time with muscle relaxer, lidocaine patch and Tylenol and ibuprofen as needed. Ordered for chest x-ray to rule out possible pneumonia. Plan This note was constructed using voice recognition software. While every effort has been made to ensure accuracy and tool machine shop supervisor, still areas may have been included sometimes these areas may affect the content or meeting of the given symptoms. Total time spent caring for the patient today was 20 minutes. This includes time spent before the visit reviewing the chart, time spent during the visit, and time spent after the visit and documentation. Orders: Orders XR chest 2V Today R05 - Cough Medications: New lidocaine 5% leave on most painful area for up to 12 hrs 1 patch topical DAILY 30 ea 0RF cyclobenzaprine 5 mg PO BEDTIME PRN 14 tabs 0RF muscle spasm
[2024-10-21 10:29] VITALS: BP 128/68; PULSE 75; O2SAT 95; BMI 36.8
== END ==
PROVIDERS: PCP Internal Medicine
DX: R05.9 Cough, unspecified (principal); R07.81 Pleurodynia

== ENCOUNTER → 2024-10-21 11:15 | Outpatient (BNV) | payer BC, SELFPAY | PROVIDERS: PCP Internal Medicine; Visit Provider Radiology Diagnostic Radiology | DX: R07.9 Chest pain, unspecified (principal) | CPT/HCPCS: 71046 ==

== ENCOUNTER 2024-11-08 07:54 | Outpatient (AMB) | payer BC, SELFPAY ==
--- NOTE | 2024-11-08 08:12 | A.OFFVIS_ITS ---
VS Expanded 11/08/24 08:13 BP 134/67 Blood Pressure Location Rt brachial Blood Pressure Position Sitting Pulse 90 Pulse Source Pulse Oximeter Temp 97.9 F Temperature Source Temporal Artery Scan Pulse Oximetry 97 Oxygen Delivery Method Room Air Height 5 ft 1 in Weight 190 lb 6.4 oz BMI 36.0 Body Fat % 42.5 Body Fat Mass 81.0 Fat Free Mass 109.4 Visceral Fat Rating 12.0 Body Water % 40.7 Body Water Mass 77.4 Muscle Mass/Score 103.8 Basal Metabolic Rate/Score 1,514 Intake Visit Reasons: OV SUTURE WINDER HAND MWL Allergies hydrocodone [Vicodin] Allergy (Intermediate, Verified 11/08/24 08:12) Itchiness all over lisinopril Allergy (Intermediate, Verified 11/08/24 08:12) cough oxycodone [From PERCOCET] Adverse Reaction (Intermediate, Verified 11/08/24 08:12) BAD DREAMS Medication List - Last Reconciled 11/08/24 by Ozzy Bhatti MD cholecalciferol (vitamin D3) (Vitamin D3) 25 mcg PO DAILY cyclobenzaprine 5 mg PO BEDTIME PRN escitalopram oxalate 20 mg PO DAILY hydrochlorothiazide 12.5 mg PO DAILY lidocaine 5% 1 patch topical DAILY losartan 50 mg PO DAILY tirzepatide (weight loss) (Zepbound) 2.5 mg (0.5 mL) subcut QWEEK trazodone 50 mg PO BEDTIME PRN 90 days HPI Comments Details: Previous weight loss efforts: WW Wakes up: 6am, Sleeps: 10pm Breakfast: 7am (oatmeal or muffin) Lunch: 12pm (meatloaf and potatoes) Dinner: 6pm (meal with startch, vegetables) Snacks: 10am (banana) Exercise: has home treadmill Fluids: Coffee (1 cup/d), tea: (1-2/wk with honey), soda: Diet coke, juice: no, ETOH: 2-3 beers x2/wk [facility] Medical History (Updated 11/08/24 @ 10:46 by Ozzy Bhatti MD) Insomnia BMI 36.0-36.9,adult Obesity Hypersomnia Left ankle sprain Annual physical exam Generalized anxiety disorder Family history of breast cancer in first degree relative Vitreous degeneration of left eye Anxiety and depression Skin melanoma Surgical History History of renal calculi History of shoulder surgery Hx of lithotripsy Hx of colonoscopy Family History Mother Breast cancer Sister Breast cancer Father No problems noted. 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 Cognitive needs: No Hearing needs: No Vision needs: Yes Physical Exam Vital Signs: Last Vital Signs Temp 97.9 F 11/08/24 08:13 Pulse 90 11/08/24 08:13 BP 134/67 11/08/24 08:13 Pulse Ox 97 11/08/24 08:13 Oxygen Delivery Method Room Air 11/08/24 08:13 BMI result Body Mass Index 36.0 GI Inspection: Yes normal to inspection (android body habitus) and Yes obesity Palpation (GI): Soft to palpation Extrem Right lower extremity: normal to inspection Left lower extremity: normal to inspection Assessment & Plan Assessment & Plan (1) Obesity: Code(s): E66.9 - Obesity, unspecified Category: Medical Qualifiers: Obesity type: due to excess calories Obesity classification: adult class 2 (BMI 35 - 39.9) Serious obesity comorbidity presence: with serious comorbidity Body mass index: BMI 36.0-36.9 Qualified Code(s): E66.812 - Obe sity, class 2; E66.01 - Morbid (severe) obesity due to excess calories; Z68.36 - Body mass index [BMI] 36.0-36.9, adult Plan: 1. You will receive a link of our software adelina to generate an individualized nutritional and exercise plan specific for you. Please send me a screenshot of the plans you will generate Meal to include lean meat (beef, fish, pork, turkey, chicken), or south korean yogurt, or egg whites, or beans with a salad with olive oil and fruits (berries, pears, apples, kiwi). Avoid salt, breads, potatoes, rice, pasta, desserts. ?2. If you choose shakes, each shake would be drunk slowly, like coffee in a period of 2 hours. ?3. If you choose bars, cut each bar in 4 pieces and eat each piece in 30min ?to make each bar last 2 hours. ?4. I emphasized the importance of measuring accurately the food portion and measure it when serving the food in plate ?5. The meal portions include a specific number of forks of meat and salad. You always eat the meat portion but you can replace up to half of salad/vegetables portion with rice, potatoes or pasta, or a fruit ?if you like. The less you do it the better weight loss will be. ?6. One full-size fork is what it can be scooped on the fork without falling aside and not what can be bit with the fork. Use regular forks like those you find in a typical restaurant. ?7.? Please buy the body composition scale we discussed and send me weight measurements as soon as possible and then nce a week. Always include your diet and exercise plan. ?8. Goal is to lose at least 1.5-2lbs per week ?9. Goal to lose 10% of your weight before surgery, which is about 19lbs. Ultimate weight goal: 171lbs before surgery 10. Please follow the diet plan exactly without any change. If you don't like something about the plan or you feel hungry you need to communicate with me so I can help you revise the plan. You should not change the plan yourself. 11. To be scheduled for EGD due to the history of sleeve gastrectomy and anemia. The possibility of biopsies was discussed. Patient needs to avoid use of NSAIDs and aspirin for 1 week prior to EGD. You must be on liquids only the day before your endoscopy. Risks of perforation and bleeding was discussed with the patient. This will be an outpatient procedure with IV sedation. Orders: Orders Insulin Today E66.9 - Obesity, unspecified, G47.00 - Insomnia, unspecified, I10 - Essential (primary) hypertension, Z68.36 - Body mass index [BMI] 36.0-36.9, adult Complete Blood Count Auto Diff Today E66.9 - Obesity, unspecified, G47.00 - Insomnia, unspecified, I10 - Essential (primary) hypertension, Z68.36 - Body mass index [BMI] 36.0-36.9, adult Comprehensive Met. Panel Today E66.9 - Obesity, unspecified, G47.00 - Insomnia, unspecified, I10 - Essential (primary) hypertension, Z68.36 - Body mass index [BMI] 36.0-36.9, adult C Reactive Protein Today E66.9 - Obesity, unspecified, G47.00 - Insomnia, unspecified, I10 - Essential (primary) hypertension, Z68.36 - Body mass index [BMI] 36.0-36.9, adult Ferritin Today E66.9 - Obesity, unspecified, G47.00 - Insomnia, unspecified, I10 - Essential (primary) hypertension, Z68.36 - Body mass index [BMI] 36.0- 36.9, adult Vitamin D 25-OH Total Today E66.9 - Obesity, unspecified, G47.00 - Insomnia, unspecified, I10 - Essential (primary) hypertension, Z68.36 - Body mass index [BMI] 36.0-36.9, adult US abdomen comp w elastography Today E66.9 - Obesity, unspecified, G47.00 - Insomnia, unspecified, I10 - Essential (primary) hypertension, Z68.36 - Body mass index [BMI] 36.0-36.9, adult XR chest 2V Today E66.9 - Obesity, unspecified, G47.00 - Insomnia, unspecified, I10 - Essential (primary) hypertension, Z68.36 - Body mass index [BMI] 36.0- 36.9, adult ECG 12 lead EKG Today E66.9 - Obesity, unspecified, G47.00 - Insomnia, unspecified, I10 - Essential (primary) hypertension, Z68.36 - Body mass index [BMI] 36.0-36.9, adult FL upper GI w air Today E66.9 - Obesity, unspecified, G47.00 - Insomnia, unspecified, I10 - Essential (primary) hypertension, Z68.36 - Body mass index [BMI] 36.0-36.9, adult Hemoglobin A1c Today E66.9 - Obesity, unspecified, G47.00 - Insomnia, unspecified, I10 - Essential (primary) hypertension, Z68.36 - Body mass index [BMI] 36.0-36.9, adult H Pylori Breath Test Today E66.9 - Obesity, unspecified, G47.00 - Insomnia, unspecified, I10 - Essential (primary) hypertension, Z68.36 - Body mass index [BMI] 36.0-36.9, adult Lipid Panel Today E66.9 - Obesity, unspecified, G47.00 - Insomnia, unspecified, I10 - Essential (primary) hypertension, Z68.36 - Body mass index [BMI] 36.0- 36.9, adult IRON PROFILE Today E66.9 - Obesity, unspecified, G47.00 - Insomnia, unspecified, I10 - Essential (primary) hypertension, Z68.36 - Body mass index [BMI] 36.0-36.9, adult Vitamin B12 and Folate Today E66.9 - Obesity, unspecified, G47.00 - Insomnia, unspecified, I10 - Essential (primary) hypertension, Z68.36 - Body mass index [BMI] 36.0-36.9, adult Zinc Today E66.9 - Obesity, unspecified, G47.00 - Insomnia, unspecified, I10 - Essential (primary) hypertension, Z68.36 - Body mass index [BMI] 36.0-36.9, adult Vitamin B1 Today E66.9 - Obesity, unspecified, G47.00 - Insomnia, unspecified, I10 - Essential (primary) hypertension, Z68.36 - Body mass index [BMI] 36.0- 36.9, adult Vitamin A Today E66.9 - Obesity, unspecified, G47.00 - Insomnia, unspecified, I10 - Essential (primary) hypertension, Z68.36 - Body mass index [BMI] 36.0- 36.9, adult TSH reflex Free T4 Today E66.9 - Obesity, unspecified, G47.00 - Insomnia, unspecified, I10 - Essential (primary) hypertension, Z68.36 - Body mass index [BMI] 36.0-36.9, adult Referrals Behavioral Health Referral E66.9 - Obesity, unspecified, G47.00 - Insomnia, unspecified, I10 - Essential (primary) hypertension, Z68.36 - Body mass index [BMI] 36.0-36.9, adult Nutrition/Dietitian Referral E66.9 - Obesity, unspecified, G47.00 - Insomnia, unspecified, I10 - Essential (primary) hypertension, Z68.36 - Body mass index [BMI] 36.0-36.9, adult
[2024-11-08 08:13] VITALS: BP 134/67; PULSE 90; TEMP 36.6; O2SAT 97; BMI 36.0
== END 2024-11-08 11:12 | disposition home or self-care (01) ==
PROVIDERS: PCP Internal Medicine; Visit Provider Surgery
DX: E66.812 Obesity, class 2 (principal); Z68.36 Body mass index [BMI] 36.0-36.9, adult
CPT/HCPCS: 99204

== ENCOUNTER 2025-08-25 16:04 | Outpatient (AMB) | payer BC, SELFPAY ==
[2025-08-25 16:17] VITALS: BP 130/72; PULSE 67; O2SAT 98; BMI 37.0
--- NOTE | 2025-08-25 16:17 | MHC.PC.OV ---
Vital Signs 08/25/25 16:17 Height 5 ft 1 in Weight 196 lb BMI 37.0 BP 130/72 Blood Pressure Location Lt brachial Position Sitting Pulse 67 Pulse Source Pulse Oximeter Pulse Oximetry (%) 98 Oxygen Delivery Method Room Air Intake Visit Reasons: Annual exam Allergies hydrocodone (Vicodin) Allergy (Intermediate, Verified 08/25/25 16:18) Itchiness all over lisinopril Allergy (Intermediate, Verified 08/25/25 16:18) cough oxycodone (From PERCOCET) Adverse Reaction (Intermediate, Verified 08/25/25 16:18) BAD DREAMS Medication List - Last Reconciled 08/25/25 by Maricel Chawla PA-C cholecalciferol (vitamin D3) (Vitamin D3) 25 mcg PO DAILY cyclobenzaprine 5 mg PO BEDTIME PRN escitalopram oxalate 20 mg PO DAILY hydrochlorothiazide 12.5 mg PO DAILY lidocaine 5% 1 patch topical DAILY losartan 50 mg PO DAILY tirzepatide (weight loss) (Zepbound) 2.5 mg (0.5 mL) subcut QWEEK trazodone 50 mg PO BEDTIME PRN 90 days Tobacco use date assessed: 10/21/24 Dental Screening Dental Screen Date: 10/21/24 HPI Annual exam HPI Details 59-year-old female with past medical history of generalized anxiety disorder, hypertension, hypercholesterolemia, impaired glucose tolerance last seen 10/2024 coming in for annual exam. Presenting for an annual wellness visit and medication management. Regarding her history of anxiety and depression, she is currently taking trazodone for sleep, which she finds effective, and Lexapro 20 mg for daytime symptoms. She questions the effectiveness of the Lexapro, noting that she is on the maximum dose, and wonders if she could discontinue it. She takes trazodone every night. For hypertension, she questioned if she still requires her blood pressure medication. Her blood pressure today was 130/72 mmHg, and she had forgotten to take her medication this morning. mammogram: 06/2024 scheduled for Monday eye doctor: [facility] pap smear: following with [facility] colonoscopy: 07/2020 repeat in 5 years vaccines: UTD due for Flu and PCV - given today [facility] Medical History Hx of melanoma of skin Fracture of left ankle, lateral malleolus COVID-19 virus infection Insomnia BMI 36.0-36.9,adult Obesity Hypersomnia Left ankle sprain Annual physical exam Generalized anxiety disorder Family history of breast cancer in first degree relative Vitreous degeneration of left eye Anxiety and depression Skin melanoma Surgical History History of renal calculi History of shoulder surgery Hx of lithotripsy Hx of colonoscopy Family History Mother Breast cancer Sister Breast cancer Father No problems noted. 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 1. Little interest or pleasure in doing things: several days 2. Feeling down, depressed, or hopeless: more than half the days 3. Trouble falling or staying asleep, or sleeping too much: several days 4. Feeling tired or having little energy: more than half the days 5. Poor appetite or overeating: not at all 6. Feeling bad about yourself - or that you are a failure or have let yourself or your family down: several days 7. Trouble concentrating on things, such as reading the newspaper or watching television: not at all 8. Moving or speaking so slowly that other people could have noticed. Or the opposite - being so fidgety or restless that you have been moving around a lot more than usual: not at all 9. Thoughts that you would be better off or of hurting yourself in some way: not at all Total score: 7 Depression Screening Interpretation: Positive Depression Screening Follow-up: Existing condition and In treatment Depression Screening Done: Yes Source: Developed by Drs. Butch Walters, Patricia Meyers, Alan Foley and colleagues, with an educational shreyas from [employer]. Thrive Questionnaire Date Thrive assessed: 08/19/25 I am a: Patient What is your living situation today?: I have a steady place to live Within the past 12 months, did the food you bought not last and you didn't have the money to get more?: Never true Within the past 12 months, did you worry whether your food would run out before you got money to buy more?: Never true Do you have trouble paying for medicines?: No Do you have trouble getting transportation to medical appointments?: No Do you have trouble paying your heating and electricity bill?: No Do you have trouble taking care of your child, family member or friend?: No Do you have trouble with day-to-day activities such as bathing, preparing meals, shopping, managing finances, etc.?: No Are you currently unemployed and looking for a job?: No Are you interested in more education?: No Please select the resources that you would like help with: None Currently or been in a relationship where the following occur: No concerns reported THRIVE Score: 0 AUDIT C Alcohol Use Questionnaire (AUDIT-C) 1. How often do you have a drink containing alcohol?: 2-3 times a week 2. How many drinks containing alcohol do you have on a typical day when you are drinking?: 3 or 4 3. How often do you have six or more drinks on one occasion?: Never Total Score: 4 JOSE LUIS-7 AMB Questionnaire JOSE LUIS-7 Date JOSE LUIS - 7 assessed: 10/21/24 Feeling nervous, anxious, or on edge: 2 = More than half the days Not being able to stop or control worryin = More than half the days Worrying too much about different things: 2 = More than half the days Trouble relaxin = More than half the days Being so restless that it is hard to sit still: 1 = Several days Becoming easily annoyed or irritable: 1 = Several days Feeling afraid as if something awful might happen: 1 = Several days Total JOSE LUIS-7 score (0-4 normal; 5-9 mild; 10-14 moderate; 15-21 severe): 11 Source: Developed by Drs. Butch Walters, Patricia Meyers, Alan Foley and colleagues, with an educational shreyas from [employer]. Review of Systems Const Denies body aches, Denies fatigue, Denies fever(s), Denies frequent falls, Denies headache(s) and Denies weakness Eyes Reports no additional complaints and Denies change in vision ENT Denies dysphagia, Denies dizziness, Denies facial pain, Denies headache(s), Denies nasal congestion and Denies odynophagia Card Denies chest pain, Denies syncope, Denies irregular heart rhythm, Denies leg edema, Denies lightheadedness and Denies dyspnea Resp Denies cough and Denies dyspnea GI Denies constipation, Denies dysphagia, Denies dyspepsia, Denies diarrhea, Denies nausea, Denies odynophagia and Denies vomiting Denies urinary frequency, Denies dysuria, Denies urinary hesitancy and Denies urinary urgency Musc Denies back pain and Denies myalgias Skin/Breast Reports system reviewed and no additional complaints, except as documented Neuro Denies dizziness, Denies syncope, Denies frequent falls, Denies headache(s) and Denies weakness Psych Reports no additional complaints Endo Denies fatigue Physical exam (Primary Care) Vital Signs: Last Vital Signs Pulse 67 08/25/25 16:17 BP 130/72 08/25/25 16:17 Pulse Ox 98 08/25/25 16:17 Oxygen Delivery Method Room Air 08/25/25 16:17 BMI result Body Mass Index 37.0 Tobacco/Smoking Status: Tobacco use Status Tobacco use date assessed 10/21/24 08/25/25 16:18 Patient Tobacco Use Status Former Tobacco user 08/25/25 16:18 Tobacco use type Cigarette 08/25/25 16:18 e-Cigarette/Vaping Use Never Used 08/25/25 16:18 PHQ-9: PHQ-9 Score PHQ-9: Total score 7 08/25/25 16:58 Depression Screening Interpretation: Positive Depression Screening Follow-up: Existing condition and In treatment Thrive Assessment: Date of Thrive Assessment Date Thrive assessed 08/19/25 08/25/25 16:18 Currently or been in a relationship where the following occur: No concerns reported Const General: cooperative, healthy appearing, comfortable and no acute distress Orientation/consciousness: patient oriented x3 HENMT Head: Yes normocephalic Ears: hearing grossly normal bilaterally, external ears normal, TM's normal bilaterally and EAC's normal General nose exam: Normal external nose present Face and sinus: Yes normal facial exam and Yes sinuses nontender Mouth: Normal oral and palatal mucosa present and tongue normal Throat: Yes posterior oropharynx normal Eyes General: appearance normal, both eyes and all related structures Conjunctivae: conjunctivae normal Pupils: Equal, round and reactive pupils present EOM: EOMs intact bilaterally and No Nystagmus present Neck Neck: Yes normal visual inspection, Yes full ROM and Yes no lymphadenopathy Chest Chest palpation & inspection: normal inspection of the chest Resp Effort & Inspection: normal respiratory effort Auscultation: clear to auscultation bilaterally, no crackles, no rales, no rhonchi, no wheezes and breath sounds present Cardio Rate: regular rate Rhythm: regular rhythm Peripheral pulses: radial pulses present and dorsalis pedis present GI Inspection: Yes normal to inspection and No Abdominal wall edema Palpation (GI): Soft to palpation, not firm and nontender Auscultation: normal bowel sounds Rectal Exam - Female: deferred General: Yes no CVA tenderness Back/Spine/Pelvis Back: no CVA tenderness Skin General skin exam: no rashes or lesions noted Neuro General: patient oriented x3 Cranial nerves: Yes Equal, round and reactive pupils present, Yes Midline tongue present, Yes Ability to bilaterally elevate shoulders present and No Nystagmus present Gait exam (Neuro): Normal gait present Extrem General: Yes normal to inspection, Yes full ROM, No no pedal edema and No edema Psych Speech and movement: Normal speech and movement present Affect: normal affect Insight: Good insight present (Psych) Judgement: Good judgement present (Psych) Office Procedures Flu Questionnaire Does the patient have a severe egg allergy?: No Does the patient have severe life threatening allergies?: No Does the patient have a fever or illness today?: No Has the patient ever had Guillain-Lehigh Syndrome?: No Has the patient ever had any past reaction to a flu shot?: No Immunizations Fluarix [id number] (PF) 45 mcg (15 mcg x 3)/0.5 mL IM syringe Performing Provider: Maricel Chawla PA-C Performing Location: [facility] Administered by: Sophia Salgado LPN on 08/25/25 16:57 Dose Route Admin Location Dispensed Lot Number Expiration Date ND [employer] 0.5 mL IM Left Deltoid 0.5 mL [id number] 04/14/26 74284-753-29 GLA[employer]SoLat[employer]ITH[employer]LINE VIS Given Date VIS Provided VIS Publication Date 08/25/25 Single Vaccine 24 Eligibility Eligibility Date Funding Source Not VFC Eligible 08/25/25 Private pneumoc 20-chloé conj-dip cr(PF) 0.5 mL IM syringe Performing Provider: Maricel Chawla PA-C Performing Location: [facility] Administered by: Sophia Salgado LPN on 08/25/25 16:57 Dose Route Admin Location Dispensed Lot Number Expiration Date [place] [employer] 0.5 mL IM Left Deltoid 0.5 mL [id number] 07/15/26 3900-0393-53 WYETH/PFIZER Total Dispensed Waste 0.5 mL 0 % VIS Given Date VIS Provided VIS Publication Date 08/25/25 Single Vaccine 25 Eligibility Eligibility Date Funding Source Not VFC Eligible 08/25/25 Private Coding Level of Care Code Est Pt Prev Care 40-64y(96322) Diagnoses Annual physical exam Z00.00 Colon cancer screening Z12.11 Depression F32.9 Generalized anxiety disorder F41.1 Essential hypertension I10 Hypertension type: essential hypertension High cholesterol E78.00 Impaired glucose tolerance R73.02 Obesity (BMI 30.0-34.9) E66.811 Fatty liver K76.0 Insomnia G47.00 Vaginal Pap smear with ASC-US R87.620 Assessment & Plan Assessment & Plan (1) Annual physical exam: Code(s): Z00.00 - Encounter for general adult medical examination without abnormal findings Category: Medical Plan: Patient is up-to-date on all recommended routine screenings and vaccinations for her age. She is given a flu and pneumonia vaccine while in the office today. She is due for colonoscopy and referral was placed to GI today. I did ordered for updated blood work. Plan to follow up in 2 months or sooner as needed (2) Colon cancer screening: Code(s): Z12.11 - Encounter for screening for malignant neoplasm of colon Category: Medical Plan: Patient had colonoscopy done 07/2020 plan to repeat in 5 years and referral was placed to GI today. (3) Depression: Code(s): F32.9 - Major depressive disorder, single episode, unspecified Category: Medical Plan: The patient feels her daytime anxiety is not well-controlled on the maximum dose of escitalopram 20 mg and wishes to reduce her medication burden. We discussed tapering scheduled for escitalopram. She will continue taking trazodone nightly for sleep, which also serves as an antidepressant when taken consistently. A follow-up visit is scheduled in two months to assess her mood and overall well-being after stopping escitalopram. Consider increase of trazodone (4) Generalized anxiety disorder: Code(s): F41.1 - Generalized anxiety disorder Category: Medical Plan: See above plan (5) Hypertension: Code(s): I10 - Essential (primary) hypertension Category: Medical Qualifiers: Hypertension type: essential hypertension Qualified Code(s): I10 - Essential (primary) hypertension Plan: Continue on current blood pressure medication. Avoid salt intake and encourage healthy diet and regular exercise. The patient's blood pressure was well-controlled at 130/72 mmHg, even without having taken her medication today. To reduce her medication regimen, she will discontinue hydrochlorothiazide. She has been instructed to monitor her blood pressure daily for one week and send the readings via the patient portal. She was advised to notify the office if her BP is consistently over 140/90 mmHg, at which point re-initiation of hydrochlorothiazide may be considered. She will continue taking losartan. Her blood pressure will be rechecked at her follow-up appointment in two months. (6) High cholesterol: Code(s): E78.00 - Pure hypercholesterolemia, unspecified Category: Medical Plan: Avoid foods that are high in cholesterol such as red meat, fried foods, eggs and baked goods. Triglyceride goal of less than 150 and LDL goal of less than 130. Ordered for repeat blood work (7) Impaired glucose tolerance: Code(s): R73.02 - Impaired glucose tolerance (oral) Category: Medical Plan: Decrease the amount of carbohydrates such as pasta, bread, rice, and potatoes and limit the amount of sweets. Although fruits are generally healthy they should be eaten in moderation as they are still high in sugar. (8) Obesity (BMI 30.0-34.9): Code(s): E66.811 - Obesity, class 1 Category: Medical Plan: Healthy diet and regular exercise is encouraged. No longer following with weight management clinic (9) Fatty liver: Code(s): K76.0 - Fatty (change of) liver, not elsewhere classified Category: Medical Plan: Healthy diet and regular exercise is encouraged. Continue to monitor LFTs and repeat blood work was ordered (10) Insomnia: Code(s): G47.00 - Insomnia, unspecified Category: Medical Plan: For sleep she will continue on trazodone 50 mg nightly. (11) Vaginal Pap smear with ASC-US: Comment: November 2022 Code(s): R87.620 - Atypical squamous cells of undetermined significance on cytologic smear of vagina (ASC-US) Category: Medical Plan: Up-to-date with gynecology Plan This note was constructed using voice recognition software. While every effort has been made to ensure accuracy and glass etcher, still areas may have been included sometimes these areas may affect the content or meeting of the given symptoms. Total time spent caring for the patient today was thirty minutes. This includes time spent before the visit reviewing the chart, time spent during the visit, and time spent after the visit and documentation. Patient was informed and verbally consented to the use of an ambient scribe for clinic note documentation during this visit. Orders: Orders Influenza [id number] Immunization 08/25/25 Z23 - Encounter for immunization TSH reflex Free T4 08/25/25 Z13.29 - Encounter for screening for other suspected endocrine disorder Lipid Panel 08/25/25 E78.00 - Pure hypercholesterolemia, unspecified Pneumococcal 20 Immunization 08/25/25 Z23 - Encounter for immunization Vitamin B12 and Folate 08/25/25 Z13.21 - Encounter for screening for nutritional disorder Vitamin D 25-OH Total 08/25/25 Z13.21 - Encounter for screening for nutritional disorder Complete Blood Count Auto Diff 08/25/25 E66.811 - Obesity, class 1, Z13.0 - Encounter for screening for diseases of the blood and blood-forming organs and certain disorders involving the immune mechanism Comprehensive Met. Panel 08/25/25 E66.811 - Obesity, class 1, Z00.00 - Encounter for general adult medical examination without abnormal findings Referrals Gastroenterology Referral Z12.11 - Encounter for screening for malignant neoplasm of colon Medications: Discontinued lidocaine 5% leave on most painful area for up to 12 hrs Discontinued Reason: Patient no longer taking 1 patch topical DAILY 30 ea 0RF cyclobenzaprine Discontinued Reason: Patient no longer taking 5 mg PO BEDTIME PRN 14 tabs 0RF muscle spasm escitalopram oxalate Discontinued Reason: Patient no longer taking 20 mg PO DAILY 90 tabs 1RF F41.1 - Generalized anxiety disorder tirzepatide (weight loss) (Zepbound) for 4 weeks Discontinued Reason: Patient no longer taking 2.5 mg (0.5 mL) subcut QWEEK 2 mL 0RF hydrochlorothiazide Discontinued Reason: Patient no longer taking 12.5 mg PO DAILY 90 tabs 2RF
--- OUTSIDE RECORDS SUMMARY | 2025-08-25 17:56 | XMS_ITS | Clinical Summary ---
Author Organization [facility] Address [address] [place] [address] Phone Care Team Providers Care [employer] Field Supervisor Name Role Phone Rochelle Bazzi MD Primary Care Provider [phone] Allergies Active Allergy Reactions Criticality Noted Date Comments Hydrocodone-Acetaminophen 09/15/2024 Sulfa (Sulfonamide Antibiotics) Rash Low 06/17 Medications traZODone (DESYREL) 50 MG tablet Take 50 mg by mouth nightly at bedtime as needed. 3 Active losartan (COZAAR) 50 MG tablet Take 1 tablet by mouth every morning. 3 Active escitalopram oxalate (LEXAPRO) 20 MG tablet Take 1 tablet by mouth every morning. 3 Active hydroCHLOROthia zide (HYDRODIURIL) 12.5 MG tablet Take 1 tablet by mouth every morning. 3 Active LORazepam (ATIVAN) 0.5 MG tablet TAKE 1 TO 2 TABLETS BY MOUTH NIGHT BEFORE PROCEDURE AND 1 HOUR BEFORE PROCEDURE 4 Active Active Problems No known active problems Immunizations No known immunizations Social History Tobacco Use Types Packs/Day Years Used Date Smoking Tobacco: Former Cigarettes Smokeless Tobacco: Never Tobacco Cessation:Counseling Given: Not Answered Education Answer Date Recorded Are you interested in more education? Not on adry e 12/25/2023 Are you concerned about learning? Not on file 12/25/2023 No 12/25/2023 No 12/25/2023 Digital Access Answer Date Recorded No 12/25/2023 No 12/25/2023 Reliable internet access at home? Not on file 12/25/2023 Device with a working camera? Not on file Comments Unknown Sex and Gender Information Value Date Recorded Sex Assigned at Not on file Legal Sex Female 3:20 PM EDT Gender Identity Not on file Sexual Orientation Not on file Last Filed Vital Signs Vital Sign Reading Time Taken Comments Blood Pressure 137/90 09/15/2024 1:54 PM EST Pulse 64 09/15/2024 1:54 PM EST Temperature 36.7 C (98 F) 09/15/2024 1:54 PM EST Respiratory Rate 18 09/15/2024 1:54 PM EST Oxygen Saturation 96% 09/15/2024 1:54 PM EST Inhaled Oxygen Concentration - - Weight 79.4 kg (175 lb) 12/29/2023 1:25 PM EDT p er pt Height - - Body Mass Index - - Plan of Treatment Health Maintenance Due Date Last Done Comments CREATININE LEVEL 1964 LIPID PANEL 1964 POTASSIUM LEVEL 1964 DEPRESSION SCREENING 1976 SMOKING Hx and SMOKELESS TOBACCO SCREENING 1977 HEPATITIS C SCREENING 1982 HIV ONE-TIME SCREENING (18-65 YEARS) 1982 PAP SMEAR 1985 MAMMOGRAM 2004 COLOGUARD 2009 COLONOSCOPY 2009 COLORECTAL CANCER SCREENING 2009 FIT TEST 2009 FOBT 2009 SIGMOIDOSCOPY 2009 VIRTUAL COLONOSCOPY 2009 PNEUMOCOCCAL VACCINES (50+ years) (1 of 1 - PCV) 2014 ZOSTER VACCINES (1 of 2) 2014 INFLUENZA VACCINE (#1) 2025 , 10/23/2023, 07/12/2022, Additional history exists COVID-19 VACCINE ( season) 2025 10/04/2022, 09/21/2021, 01/09/2021, Additional history exists Adult Td,Tdap Booster 05/16/2029 05/16/2019 RSV VACCINE (1 - 1-dose 75+ series) 2039 HEPATITIS A VACCINES Aged Out No long er eligible based on patient's age to complete this topic HIB VACCINES Aged Out No longer eligi ble based on patient's age to complete this topic IPV VACCINES Aged Out No longer eligi ble based on patient's age to complete this topic MENINGOCOCCAL VACCINES (ACWY) Aged Out No longer eligible based on patient's age to complete this topic MENINGOCOCCAL VACCINES (B) Aged Out N o longer eligible based on patient's age to complete this topic Medical Devices Not on file Insurance [facility] Member Subscriber Plan / Payer (Ef fective 2023-Present) Name:Kinza Perera Relation to Subscriber:Self Name:Kinza Perera Payer ID:Not on file Type:PPO Address: [address] [facility] Member Subscriber Plan / Payer (Ef fective 2023-Present) Name:Kinza Perera Relation to Subscriber:Self Name:Kinza Perera Payer ID:Not on file Type:PPO Address: [address] [facility] Member Subscriber Plan / Payer (Ef fective 2023-Present) Name:Kinza Perera Relation to Subscriber:Self Name:Kinza Perera Payer ID:Not on file Type:PPO Address: [address] [facility] Member Subscriber Plan / Payer (Ef fective 2023-Present) Name:Kinza Perera Relation to Subscriber:Self Name:Kinza Perera Payer ID:Not on file Type:PPO Address: [address] [facility] Care Teams [employer] Field Supervisor Relationship Specialty Start Date End Date Rochelle Bazzi MD [address] [place] [address] [phone] PCP - General Internal Medicine 12/25/23 Additional Source Comments The information contained in this document represents components of the legal health record. It is not the complete legal health record.[facility]
== END 2025-08-25 17:02 | disposition home or self-care (01) ==
LOC: HO.HMCH 16:05
PROVIDERS: PCP Internal Medicine
DX: Z23 Encounter for immunization (principal)

== ENCOUNTER → 2025-08-25 16:04 | Outpatient (BNVA) | payer BC, SELFPAY | PROVIDERS: PCP Internal Medicine | DX: Z00.00 Encounter for general adult medical examination without abnormal findings (principal); F32.A Depression, unspecified; F41.1 Generalized anxiety disorder; R03.0 Elevated blood-pressure reading, without diagnosis of hypertension; I10 Essential (primary) hypertension; E78.00 Pure hypercholesterolemia, unspecified; R73.02 Impaired glucose tolerance (oral); K76.0 Fatty (change of) liver, not elsewhere classified; G47.00 Insomnia, unspecified; R87.620 Atypical squamous cells of undetermined significance on cytologic smear of vagina (ASC-US); E66.811 Obesity, class 1; Z23 Encounter for immunization; Z79.899 Other long term (current) drug therapy; Z68.37 Body mass index [BMI] 37.0-37.9, adult | CPT/HCPCS: 90471; 90472; 90656; 90677; 96127 ==